=== PATIENT | male | born 1945 | race Caucasian/White ===

== ENCOUNTER 2019-02-10 10:14 | Inpatient (IN) | payer BC, MEDICARE ==
[2019-02-10] MEDS ORDERED: Magnesium Hydroxide 400 MG/5 ML Susp 30 ML Cup PO PRN (15:34)
[2019-02-10] MEDS ORDERED: Acetaminophen 325 MG Tab PO PRN (15:34)
[2019-02-10] MEDS ORDERED: Docusate Sodium 100 MG Cap PO PRN (15:34)
[2019-02-10] MEDS ORDERED: Albuterol/Ipratropium 3.0-0.5 MG/3 ML Neb Soln NEB PRN (15:34)
[2019-02-10] MEDS ORDERED: Albuterol/Ipratropium 3.0-0.5 MG/3 ML Neb Soln INH PRN (15:37)
[2019-02-10] MEDS: Formoterol/Mometasone 200-5 MCG 8.8 GM Inhaler IH SCH (17:59)
--- NOTE | 2019-02-10 19:33 | HP ---
CHIEF COMPLAINT: The patient is being admitted to swing bed for continued physical therapy and occupational therapy. HISTORY OF PRESENTING ILLNESS: Mr. Issa Barrios is a 73-year-old male with a medical history significant for chronic obstructive pulmonary disease, history of chronic tobacco use in the past, was initially admitted to [facility] on January 24, 2019 with increasing shortness of breath and was treated for acute COPD exacerbation and acute respiratory failure requiring BiPAP at times and got discharged today. As he has generalized debility with continued requirement of physical therapy, he is being admitted to [facility] bed at this time. At this time, the patient denies any complaints of chest pain, continues to have mild shortness of breath, 3 to 4/10 in intensity, aggravated on exertion, relieved with rest. Not associated with nausea or vomiting. Denies any abdominal pain. The patient has longstanding history of COPD and also has history of sleep apnea. He usually uses CPAP at night. The patient had chronic history of tobacco use. He has been trying to quit smoking, but last time he smoked was few days prior to getting admitted to [facility]. The patient denied any history of chest pains on exertion, but has dyspnea on exertion. No history of orthopnea or paroxysmal nocturnal dyspnea. The patient denied any history of hematemesis, hematochezia, or melenic stools. Normal bowel and bladder habits otherwise. REVIEW OF SYSTEMS: A complete review of systems including skin; ear, nose, and throat; cardiovascular system; respiratory system; gastrointestinal system; genitourinary system; hematology; oncology; neurology; allergy/immunology; constitutional were all evaluated and were negative except for the above-said notes. PAST MEDICAL HISTORY: Significant for chronic tobacco use, chronic obstructive pulmonary disease, sleep apnea requiring CPAP at night. PAST SURGICAL HISTORY: None as per the patient. Had left heart catheterization in 11/2018. FAMILY HISTORY: Significant for diabetes and cancer in his father. SOCIAL HISTORY: The patient had history of smoking tobacco in the past and trying to quit smoking now. No history of alcohol intake. No history of drug use. ALLERGIES: No known drug allergies. HOME MEDICATIONS: Include Spiriva 18 mcg inhalation daily, tamsulosin 1 tablet at bedtime, prednisone 20 mg daily, simvastatin 10 mg daily, mirtazapine 15 mg at bedtime, DuoNeb 3 mL inhalation 4 times a day as needed, Lasix 40 mg daily, Dulera 2-puff inhalation twice a day. PHYSICAL EXAMINATION: Vital Signs: Temperature of 98.4, pulse of 92, blood pressure of 83/58, respiratory rate of 20, saturating at 91% on 1 L of oxygen. General Appearance: The patient is well oriented to time, place, and person. Follows commands spontaneously. Cardiovascular System: S1, S2 heard with normal intensity. No gallops. Respiratory System: Clear to auscultation bilaterally. No wheeze. No crepitations. Abdomen: Soft. Bowel sounds positive. Nontender. No rigidity. Extremities: No edema in bilateral lower extremities. LABORATORY DATA: Labs from [facility] shows sodium 142, potassium 4.2, chloride 101, bicarb 37.6, creatinine 0.8, glucose 80. Arterial blood gas analysis shows pH of 7.33, pCO2 of 69, PO2 of 75, bicarb 36.4. ASSESSMENT: 1. Chronic obstructive pulmonary disease. 2. 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 3. Obstructive sleep apnea requiring CPAP at night. 4. History of chronic tobacco use. 5. Generalized debility requiring physical therapy and occupational therapy. PLAN: 1. Chronic obstructive pulmonary disease. Continue with current inhalation treatment and nebulizer treatment. The patient will be encouraged to use incentive spirometer and flutter valve for better pulmonary toileting. The patient had a CT scan done at [facility], which showed evidence of severe emphysematous changes with bullous changes and honeycombing suggesting end-stage lung disease. The patient was also evaluated by pulmonary team over there and advised to continue with inhalation treatments. 2. Low blood pressure. The patient noted to have low blood pressure. He has been on Lasix. We will further dose adjust the medication to optimize the blood pressure. Try to avoid any hypotensive episodes. The patient remains asymptomatic. 3. Obstructive sleep apnea. The patient usually uses CPAP at night. Continue with CPAP while in the hospital. 4. DVT prophylaxis. We will him on heparin for DVT prophylaxis. 5. Chronic hypoxic respiratory failure. Continue supplemental oxygen to maintain a saturation of 90%. 6. Code status. The patient wants to be full code. Discussed with the patient regarding the treatment goals and options. Reviewed the labs and medications. Reviewed the old charts and charts obtained from [facility]. [facility] /[id number]
[2019-02-10] MEDS: Mirtazapine 15 MG Tab PO SCH (20:54)
[2019-02-10] MEDS: Tamsulosin 0.4 MG Cap.ER PO SCH (20:54)
[2019-02-11 06:38] LABS: ANION GAP 9.8; CHLORIDE,CL 95 mmol/L (101-111); SODIUM,NA 139 mmol/L (135-145)
[2019-02-11] MEDS: Formoterol/Mometasone 200-5 MCG 8.8 GM Inhaler IH SCH ×2 (08:41→17:27)
[2019-02-11] MEDS: Simvastatin 10 MG Tab PO SCH (08:42)
[2019-02-11] MEDS: Furosemide 20 MG Tab PO SCH (08:43)
[2019-02-11] MEDS: predniSONE 20 MG Tab PO SCH (08:43)
[2019-02-11] MEDS: Tiotropium Inhaler 18 MCG Inhalation Powder Cap Kit of 5 INH SCH (08:44)
[2019-02-11] MEDS: Enoxaparin 40 MG/0.4 ML Syringe SUBCUT SCH (17:23)
[2019-02-11] MEDS: Tamsulosin 0.4 MG Cap.ER PO SCH (20:33)
[2019-02-11] MEDS: Mirtazapine 15 MG Tab PO SCH (20:33)
[2019-02-12] MEDS: Tiotropium Inhaler 18 MCG Inhalation Powder Cap Kit of 5 INH SCH (09:09)
[2019-02-12] MEDS: Formoterol/Mometasone 200-5 MCG 8.8 GM Inhaler IH SCH ×2 (09:09→17:44)
[2019-02-12] MEDS: Enoxaparin 40 MG/0.4 ML Syringe SUBCUT SCH (09:09)
[2019-02-12] MEDS: Simvastatin 10 MG Tab PO SCH (09:10)
[2019-02-12] MEDS: Furosemide 20 MG Tab PO SCH (09:10)
[2019-02-12] MEDS: predniSONE 20 MG Tab PO SCH (09:10)
[2019-02-12] MEDS: Tamsulosin 0.4 MG Cap.ER PO SCH (21:00)
[2019-02-12] MEDS: Mirtazapine 15 MG Tab PO SCH (21:00)
[2019-02-13] MEDS: Simvastatin 10 MG Tab PO SCH (08:42)
[2019-02-13] MEDS: Enoxaparin 40 MG/0.4 ML Syringe SUBCUT SCH (08:42)
[2019-02-13] MEDS: predniSONE 20 MG Tab PO SCH (08:42)
[2019-02-13] MEDS: Furosemide 20 MG Tab PO SCH (08:42)
[2019-02-13] MEDS: Formoterol/Mometasone 200-5 MCG 8.8 GM Inhaler IH SCH ×2 (08:43→17:43)
[2019-02-13] MEDS: Tiotropium Inhaler 18 MCG Inhalation Powder Cap Kit of 5 INH SCH (08:44)
[2019-02-13] MEDS: Tamsulosin 0.4 MG Cap.ER PO SCH (20:39)
[2019-02-13] MEDS: Mirtazapine 15 MG Tab PO SCH (20:40)
[2019-02-14] MEDS: Formoterol/Mometasone 200-5 MCG 8.8 GM Inhaler IH SCH ×2 (08:09→17:58)
[2019-02-14] MEDS: Furosemide 20 MG Tab PO SCH (09:20)
[2019-02-14] MEDS: predniSONE 20 MG Tab PO SCH (09:20)
[2019-02-14] MEDS: Simvastatin 10 MG Tab PO SCH (09:20)
[2019-02-14] MEDS: Enoxaparin 40 MG/0.4 ML Syringe SUBCUT SCH (09:20)
[2019-02-14] MEDS: Tiotropium Inhaler 18 MCG Inhalation Powder Cap Kit of 5 INH SCH (09:21)
[2019-02-14] MEDS: Mirtazapine 15 MG Tab PO SCH (20:55)
[2019-02-14] MEDS: Tamsulosin 0.4 MG Cap.ER PO SCH (20:55)
[2019-02-15] MEDS: Furosemide 20 MG Tab PO SCH (08:54)
[2019-02-15] MEDS: predniSONE 20 MG Tab PO SCH (08:54)
[2019-02-15] MEDS: Simvastatin 10 MG Tab PO SCH (08:55)
[2019-02-15] MEDS: Enoxaparin 40 MG/0.4 ML Syringe SUBCUT SCH (08:55)
[2019-02-15] MEDS: Formoterol/Mometasone 200-5 MCG 8.8 GM Inhaler IH SCH ×2 (08:56→18:20)
[2019-02-15] MEDS: Tiotropium Inhaler 18 MCG Inhalation Powder Cap Kit of 5 INH SCH (08:56)
[2019-02-15] MEDS: Mirtazapine 15 MG Tab PO SCH (20:32)
[2019-02-15] MEDS: Tamsulosin 0.4 MG Cap.ER PO SCH (20:32)
[2019-02-16] MEDS: Formoterol/Mometasone 200-5 MCG 8.8 GM Inhaler IH SCH ×2 (08:18→19:16)
[2019-02-16] MEDS: Furosemide 20 MG Tab PO SCH (08:19)
[2019-02-16] MEDS: predniSONE 20 MG Tab PO SCH (08:19)
[2019-02-16] MEDS: Enoxaparin 40 MG/0.4 ML Syringe SUBCUT SCH (08:19)
[2019-02-16] MEDS: Simvastatin 10 MG Tab PO SCH (08:19)
[2019-02-16] MEDS: Tiotropium Inhaler 18 MCG Inhalation Powder Cap Kit of 5 INH SCH (09:38)
[2019-02-16] MEDS: Tamsulosin 0.4 MG Cap.ER PO SCH (21:33)
[2019-02-16] MEDS: Mirtazapine 15 MG Tab PO SCH (21:33)
[2019-02-17] MEDS: Formoterol/Mometasone 200-5 MCG 8.8 GM Inhaler IH SCH ×2 (08:58→19:01)
[2019-02-17] MEDS: Simvastatin 10 MG Tab PO SCH (09:00)
[2019-02-17] MEDS: Enoxaparin 40 MG/0.4 ML Syringe SUBCUT SCH (09:00)
[2019-02-17] MEDS: predniSONE 20 MG Tab PO SCH (09:00)
[2019-02-17] MEDS: Furosemide 20 MG Tab PO SCH (09:00)
[2019-02-17] MEDS: Tiotropium Inhaler 18 MCG Inhalation Powder Cap Kit of 5 INH SCH (09:01)
[2019-02-17] MEDS: Tamsulosin 0.4 MG Cap.ER PO SCH (21:32)
[2019-02-17] MEDS: Mirtazapine 15 MG Tab PO SCH (21:32)
[2019-02-18] MEDS: Formoterol/Mometasone 200-5 MCG 8.8 GM Inhaler IH SCH ×2 (09:05→19:09)
[2019-02-18] MEDS: Tiotropium Inhaler 18 MCG Inhalation Powder Cap Kit of 5 INH SCH (09:06)
[2019-02-18] MEDS: Simvastatin 10 MG Tab PO SCH (09:06)
[2019-02-18] MEDS: predniSONE 20 MG Tab PO SCH (09:06)
[2019-02-18] MEDS: Enoxaparin 40 MG/0.4 ML Syringe SUBCUT SCH (09:07)
[2019-02-18] MEDS: Furosemide 20 MG Tab PO SCH (09:07)
--- NOTE | 2019-02-18 10:01 | PN ---
DATE: 02/17/2019 SUBJECTIVE: The patient is a 73-year-old male with past medical history of COPD, chronic tobacco use, who was admitted to Swing Bed for continued physical therapy and outpatient therapy. He is currently using BiPAP at night and this has been helping him. The patient currently denies any significant ongoing complaint except that he is still weak, but no chest pain, fever, chills, orthopnea, PND, abdominal pain, or any other complaints. OBJECTIVE: Vital Signs: Blood pressure is 96/55, pulse of 75, respirations 16, temperature of 98.9, saturation is 97% on 2 L per nasal cannula. Heart: Regular rate and rhythm. Normal S1 and S2. No gallops. No rubs. Lungs: Diminished breath sounds on both bases, but no crackles, no wheezing. Abdomen: Soft and nontender. Bowel sounds positive. Extremities: Negative for any calf tenderness. No significant pedal edema. MEDICATIONS: Reviewed. PLAN: We will continue with present management and continue with PT and OT. [facility] /[id number]
[2019-02-18] MEDS: Tamsulosin 0.4 MG Cap.ER PO SCH (21:26)
[2019-02-18] MEDS: Mirtazapine 15 MG Tab PO SCH (21:27)
[2019-02-19] MEDS: Formoterol/Mometasone 200-5 MCG 8.8 GM Inhaler IH SCH ×2 (07:54→17:57)
[2019-02-19] MEDS: Furosemide 20 MG Tab PO SCH (09:29)
[2019-02-19] MEDS: predniSONE 20 MG Tab PO SCH (09:29)
[2019-02-19] MEDS: Enoxaparin 40 MG/0.4 ML Syringe SUBCUT SCH (09:29)
[2019-02-19] MEDS: Simvastatin 10 MG Tab PO SCH (09:29)
[2019-02-19] MEDS: Tiotropium Inhaler 18 MCG Inhalation Powder Cap Kit of 5 INH SCH (09:30)
[2019-02-19] MEDS: Mirtazapine 15 MG Tab PO SCH (21:46)
[2019-02-19] MEDS: Tamsulosin 0.4 MG Cap.ER PO SCH (21:46)
[2019-02-20] MEDS: predniSONE 20 MG Tab PO SCH (08:53)
[2019-02-20] MEDS: Simvastatin 10 MG Tab PO SCH (08:53)
[2019-02-20] MEDS: Furosemide 20 MG Tab PO SCH (08:53)
[2019-02-20] MEDS: Tiotropium Inhaler 18 MCG Inhalation Powder Cap Kit of 5 INH SCH (08:55)
[2019-02-20] MEDS: Enoxaparin 40 MG/0.4 ML Syringe SUBCUT SCH (08:55)
[2019-02-20] MEDS: Formoterol/Mometasone 200-5 MCG 8.8 GM Inhaler IH SCH ×2 (08:55→18:27)
[2019-02-20] MEDS: Tamsulosin 0.4 MG Cap.ER PO SCH (21:27)
[2019-02-20] MEDS: Mirtazapine 15 MG Tab PO SCH (21:27)
[2019-02-21] MEDS: Formoterol/Mometasone 200-5 MCG 8.8 GM Inhaler IH SCH ×2 (06:24→18:30)
[2019-02-21] MEDS: predniSONE 20 MG Tab PO SCH (08:46)
[2019-02-21] MEDS: Furosemide 20 MG Tab PO SCH (08:46)
[2019-02-21] MEDS: Simvastatin 10 MG Tab PO SCH (08:47)
[2019-02-21] MEDS: Enoxaparin 40 MG/0.4 ML Syringe SUBCUT SCH (08:47)
[2019-02-21] MEDS: Tiotropium Inhaler 18 MCG Inhalation Powder Cap Kit of 5 INH SCH (08:53)
[2019-02-21] MEDS: Tamsulosin 0.4 MG Cap.ER PO SCH (21:09)
[2019-02-21] MEDS: Mirtazapine 15 MG Tab PO SCH (21:09)
[2019-02-22] MEDS: Formoterol/Mometasone 200-5 MCG 8.8 GM Inhaler IH SCH ×2 (08:49→21:07)
[2019-02-22] MEDS: Furosemide 20 MG Tab PO SCH (08:49)
[2019-02-22] MEDS: predniSONE 20 MG Tab PO SCH (08:50)
[2019-02-22] MEDS: Enoxaparin 40 MG/0.4 ML Syringe SUBCUT SCH (08:50)
[2019-02-22] MEDS: Tiotropium Inhaler 18 MCG Inhalation Powder Cap Kit of 5 INH SCH (08:50)
[2019-02-22] MEDS: Simvastatin 10 MG Tab PO SCH (08:50)
[2019-02-22] MEDS: Mirtazapine 15 MG Tab PO SCH (21:07)
[2019-02-22] MEDS: Tamsulosin 0.4 MG Cap.ER PO SCH (21:07)
[2019-02-23] MEDS: Simvastatin 10 MG Tab PO SCH (09:20)
[2019-02-23] MEDS: Furosemide 20 MG Tab PO SCH (09:21)
[2019-02-23] MEDS: Formoterol/Mometasone 200-5 MCG 8.8 GM Inhaler IH SCH ×2 (09:21→17:37)
[2019-02-23] MEDS: predniSONE 20 MG Tab PO SCH (09:21)
[2019-02-23] MEDS: Tiotropium Inhaler 18 MCG Inhalation Powder Cap Kit of 5 INH SCH (09:21)
[2019-02-23] MEDS: Enoxaparin 40 MG/0.4 ML Syringe SUBCUT SCH (09:21)
[2019-02-23] MEDS: Mirtazapine 15 MG Tab PO SCH (21:12)
[2019-02-23] MEDS: Tamsulosin 0.4 MG Cap.ER PO SCH (21:12)
[2019-02-24] MEDS: Formoterol/Mometasone 200-5 MCG 8.8 GM Inhaler IH SCH ×2 (08:03→17:41)
[2019-02-24] MEDS: Furosemide 20 MG Tab PO SCH (08:04)
[2019-02-24] MEDS: Tiotropium Inhaler 18 MCG Inhalation Powder Cap Kit of 5 INH SCH (08:05)
[2019-02-24] MEDS: Simvastatin 10 MG Tab PO SCH (08:05)
[2019-02-24] MEDS: predniSONE 20 MG Tab PO SCH (08:05)
[2019-02-24] MEDS: Enoxaparin 40 MG/0.4 ML Syringe SUBCUT SCH (08:05)
--- NOTE | 2019-02-24 13:31 | PCM.PN ---
- General Info Date of Service: 02/24/19 Admission Dx/Problem (Free Text): He was admitted to swing bed for strengthening and continuing PT/OT Subjective Update: He was seen in room, doing well, still weak, No nausea or Vomiting, appetite is good, No fever or Chill. Functional Status: Reports: Pain Controlled, Tolerating Diet, Ambulating, Urinating - Review of Systems General: Reports: Weakness, Fatigue, Appetite (good). Denies: Fever, Chills HEENT: Denies: Headaches, Sinus Congestion, Sore Throat, Visual Changes Pulmonary: Reports: Shortness of Breath (on supplemental oxygen). Denies: Cough , Sputum, Wheezing Cardiovascular: Reports: Dyspnea on Exertion. Denies: Chest Pain, Lightheadedness Gastrointestinal: Denies: Abdominal Pain, Diarrhea, Difficulty Swallowing, Melena, Nausea, Vomiting Genitourinary: Denies: Dysuria, Burning, Urgency Musculoskeletal: Denies: Neck Pain, Foot Pain, Joint Swelling Skin: Denies: Cyanosis, Bruising, Pruritis, Rash Neurological: Denies: Confusion, Numbness, Paresthesia, Tremors Psychiatric: Denies: Confusion, Anxiety - Patient Data Vitals - Most Recent: Last Vital Signs Temp 37.1 C 02/24/19 07:51 Pulse 94 02/24/19 07:51 Resp 20 02/24/19 07:51 BP 100/57 L 02/24/19 07:51 Pulse Ox 96 02/24/19 07:51 Weight - Most Recent: 58.332 kg I&O - Last 24 Hours: Intake & Output 02/23/19 02/24/19 02/24/19 22:59 06:59 14:59 Intake Total 100 200 Balance 100 200 Med Orders - Current: Current Medications Acetaminophen (Tylenol) 650 mg PO Q4H PRN PRN Reason: Pain (Mild 1-3)/fever Albuterol/Ipratropium (Duoneb 3.0-0.5 Mg/3 Ml) 3 ml NEB Q4H PRN PRN Reason: shortness of breath/wheezing Last Admin: 02/23/19 12:32 Dose: 3 ml Docusate Sodium (Colace) 100 mg PO BID PRN PRN Reason: Constipation Last Admin: 02/12/19 09:10 Dose: 100 mg Enoxaparin Sodium (Lovenox) 40 mg SUBCUT DAILY [facility] Last Admin: 02/24/19 08:05 Dose: 40 mg Furosemide (Lasix) 20 mg PO DAILY [facility] Last Admin: 02/24/19 08:04 Dose: 20 mg Magnesium Hydroxide (Milk Of Magnesia) 30 ml PO Q12H PRN PRN Reason: Constipation Mirtazapine (Remeron) 15 mg PO BEDTIME [facility] Last Admin: 02/23/19 21:12 Dose: 15 mg Mometasone Furoate/Formoterol Fumar (Dulera 200-5 Mcg) 2 puff IH BIDRT [facility] Last Admin: 02/24/19 08:03 Dose: 2 puff Prednisone (Prednisone) 20 mg PO DAILY [facility] Last Admin: 02/24/19 08:05 Dose: 20 mg Simvastatin (Zocor) 10 mg PO DAILY [facility] Last Admin: 02/24/19 08:05 Dose: 10 mg Tamsulosin HCl (Flomax) 0.4 mg PO BEDTIME [facility] Last Admin: 02/23/19 21:12 Dose: 0.4 mg Tiotropium [place] (Spiriva Handihaler) 18 mcg INH DAILY [facility] Last Admin: 02/24/19 08:05 Dose: 18 mcg Discontinued Medications Influenza Virus Vaccine (Fluad [id number] Syringe) 45 mcg IM .ONCE ONE Stop: 02/11/19 15:01 Last Admin: 02/11/19 17:25 Dose: 45 mcg - Exam Quality Assessment: Supplemental Oxygen, DVT Prophylaxis. No: Urine Catheter General: Alert, Oriented, Cooperative, No Acute Distress HEENT: Pupils Equal, Pupils Reactive, EOMI, Mucous Membr. Moist/[place]: No: No JVD, No Thyromegaly, Lymphadenopathy Lungs: Clear to Auscultation, Normal Respiratory Effort, Crackles. No: Wheezing Cardiovascular: Regular Rate, Regular Rhythm GI/Abdominal Exam: Normal Bowel Sounds, Soft, Non-Tender, No Distention. No: Rebound, Tender (Male) Exam: Deferred Back Exam: Normal Inspection Extremities: Normal Inspection, No Pedal Edema Skin: Warm, Dry, Intact Neurological: No New Focal Deficit, Normal Speech Psy/Mental Status: Alert, Normal Affect, Normal Mood Sepsis Event Note - Evaluation Sepsis Screening Result: No Definite Risk - Focused Exam Vital Signs: Vital Signs Temp Pulse Resp BP Pulse Ox 02/24/19 07:51 37.1 C 94 20 100/57 L 96 Date Exam was Performed: 02/24/19 Time Exam was Performed: 13:38 - Problem List & Annotations (1) COPD (chronic obstructive pulmonary disease) SNOMED Code(s): 28274180 Code(s): J44.9 - CHRONIC OBSTRUCTIVE PULMONARY DISEASE, UNSPECIFIED Status : Acute Current Visit: Yes (2) Weakness SNOMED Code(s): 99307980 Code(s): R53.1 - WEAKNESS Status: Acute Current Visit: Yes (3) Hypertension SNOMED Code(s): 24084792 Code(s): I10 - ESSENTIAL (PRIMARY) HYPERTENSION Status: Acute Current Visit: Yes - Problem List Review Problem List Initiated/Reviewed/Updated: Yes - Plan Plan:: This is a 73 Y/O Male with past medical history of COPD, history of chronic Tobaco use, initially admitted to [facility] for Increasing shortness of breath, was treated for COPD exacerbation and acute respiratory failure requiring the use of BiPAP. He is now admitted to [facility] Bed for continuing Physical therapy and Occupational therapy. He is now improving but unable to wean off oxygen. He seems likely will be needing oxygen 24 hrs. Impression and Plan: 1. COPD: Continue with current Inhalation and Nebulizer treatment -Encouraged frequent use of Incentive Spirometry and Flutter Valve for better pulmonary toileting 2. Generalized weakness: He is now doing PT/OT and Improving , will need to continue PT/OT 3. Dyslipidemia: will continue Simvastatin 4. Hypertension: His BP is acceptable and was Hypotensive at [facility], now he is not on any medication 5. DVT prophylaxis: He is on Enoxaparin
[2019-02-24] MEDS: Mirtazapine 15 MG Tab PO SCH (21:25)
[2019-02-24] MEDS: Tamsulosin 0.4 MG Cap.ER PO SCH (21:25)
[2019-02-25] MEDS: Formoterol/Mometasone 200-5 MCG 8.8 GM Inhaler IH SCH ×2 (08:11→18:32)
[2019-02-25] MEDS: Enoxaparin 40 MG/0.4 ML Syringe SUBCUT SCH (08:12)
[2019-02-25] MEDS: Furosemide 20 MG Tab PO SCH (08:12)
[2019-02-25] MEDS: Tiotropium Inhaler 18 MCG Inhalation Powder Cap Kit of 5 INH SCH (08:13)
[2019-02-25] MEDS: predniSONE 20 MG Tab PO SCH (08:13)
[2019-02-25] MEDS: Simvastatin 10 MG Tab PO SCH (08:13)
[2019-02-25] MEDS: Mirtazapine 15 MG Tab PO SCH (21:03)
[2019-02-25] MEDS: Tamsulosin 0.4 MG Cap.ER PO SCH (21:03)
[2019-02-26] MEDS: Formoterol/Mometasone 200-5 MCG 8.8 GM Inhaler IH SCH ×2 (08:57→18:00)
[2019-02-26] MEDS: Tiotropium Inhaler 18 MCG Inhalation Powder Cap Kit of 5 INH SCH (08:57)
[2019-02-26] MEDS: Furosemide 20 MG Tab PO SCH (08:58)
[2019-02-26] MEDS: predniSONE 20 MG Tab PO SCH (08:58)
[2019-02-26] MEDS: Simvastatin 10 MG Tab PO SCH (08:58)
[2019-02-26] MEDS: Enoxaparin 40 MG/0.4 ML Syringe SUBCUT SCH (08:59)
[2019-02-26] MEDS: Mirtazapine 15 MG Tab PO SCH (20:48)
[2019-02-26] MEDS: Tamsulosin 0.4 MG Cap.ER PO SCH (20:49)
[2019-02-27] MEDS: Formoterol/Mometasone 200-5 MCG 8.8 GM Inhaler IH SCH ×2 (08:23→17:09)
[2019-02-27] MEDS: Furosemide 20 MG Tab PO SCH (08:24)
[2019-02-27] MEDS: Enoxaparin 40 MG/0.4 ML Syringe SUBCUT SCH (08:24)
[2019-02-27] MEDS: Simvastatin 10 MG Tab PO SCH (08:25)
[2019-02-27] MEDS: predniSONE 20 MG Tab PO SCH (08:25)
[2019-02-27] MEDS: Tiotropium Inhaler 18 MCG Inhalation Powder Cap Kit of 5 INH SCH (08:25)
[2019-02-27] MEDS: Tamsulosin 0.4 MG Cap.ER PO SCH (21:27)
[2019-02-27] MEDS: Mirtazapine 15 MG Tab PO SCH (21:28)
[2019-02-28] MEDS: Formoterol/Mometasone 200-5 MCG 8.8 GM Inhaler IH SCH ×2 (09:11→18:13)
[2019-02-28] MEDS: Simvastatin 10 MG Tab PO SCH (09:11)
[2019-02-28] MEDS: Furosemide 20 MG Tab PO SCH (09:11)
[2019-02-28] MEDS: Enoxaparin 40 MG/0.4 ML Syringe SUBCUT SCH (09:11)
[2019-02-28] MEDS: predniSONE 20 MG Tab PO SCH (09:11)
[2019-02-28] MEDS: Tiotropium Inhaler 18 MCG Inhalation Powder Cap Kit of 5 INH SCH (09:12)
[2019-02-28] MEDS: Tamsulosin 0.4 MG Cap.ER PO SCH (20:52)
[2019-02-28] MEDS: Mirtazapine 15 MG Tab PO SCH (20:52)
[2019-03-01] MEDS: Formoterol/Mometasone 200-5 MCG 8.8 GM Inhaler IH SCH (07:51)
[2019-03-01 08:36] VITALS: BP 110/65; PULSE 90
[2019-03-01] MEDS: Furosemide 20 MG Tab PO SCH (09:08)
[2019-03-01] MEDS: predniSONE 20 MG Tab PO SCH (09:08)
[2019-03-01] MEDS: Enoxaparin 40 MG/0.4 ML Syringe SUBCUT SCH (09:08)
[2019-03-01] MEDS: Simvastatin 10 MG Tab PO SCH (09:08)
[2019-03-01] MEDS: Tiotropium Inhaler 18 MCG Inhalation Powder Cap Kit of 5 INH SCH (09:09)
--- NOTE | 2019-03-01 12:41 | PCM.DCSUM1 ---
Discharge Summary - Hospital Course Free Text/Narrative:: This is a 73 Y/O Male with past medical history of COPD, history of chronic Tobaco use, initially admitted to [facility] for Increasing shortness of breath, was treated for COPD exacerbation and acute respiratory failure requiring the use of BiPAP. He is now admitted to Swing Bed for continuing Physical therapy and Occupational therapy. He is now improving but unable to wean off oxygen. He will need supplemental oxygen 24 hrs at home. He had walking desaturation study done and 1st 02 sat on Room air: 75%, second lowest Desaturation: 85% with 4 L/min, Recovery 89% on 3L/min, pt needs 6 L/ min with activity. He will need out patient PT for strengthening and Decreased Mobility - Discharge Data Discharge Date: 03/01/19 Discharge Disposition: Home, Self-Care 01 Condition: Good - Referral to Home Health Primary Care Physician: PCP Unobtainable - Discharge Diagnosis/Problem(s) (1) COPD (chronic obstructive pulmonary disease) SNOMED Code(s): 41711277 ICD Code: J44.9 - CHRONIC OBSTRUCTIVE PULMONARY DISEASE, UNSPECIFIED Status : Acute Current Visit: Yes (2) Weakness SNOMED Code(s): 67052722 ICD Code: R53.1 - WEAKNESS Status: Acute Current Visit: Yes (3) Hypertension SNOMED Code(s): 37391317 ICD Code: I10 - ESSENTIAL (PRIMARY) HYPERTENSION Status: Acute Current Visit: Yes - Patient Summary/Data Consults: Consultations 02/10/19 15:34 OT Evaluation and Treatment [CONS] Routine PT Evaluation and Treatment [CONS] Routine - Patient Instructions Diet: Usual Diet as Tolerated Activity: As Tolerated Showering/Bathing: May Shower Notify Provider of: Fever, Nausea and/or Vomiting Other/Special Instructions: pt need to follow with PMD in a week after Discharge. He will go home on oxygen 3 L/min at rest and 6 L/min with activilty. He is encouraged to use incentive spirometry and flutter valve for better pulmonary tioleting. - Discharge Plan Prescriptions/Med Rec: predniSONE [Prednisone] 10 mg PO . DIRECTED #8 tab.ds.pk Home Medications: Home Meds Furosemide 40 mg PO DAILY 10/09/13 [History] Tamsulosin HCl 1 tab PO BEDTIME 10/09/13 [History] Mirtazapine [Remeron] 15 mg PO BEDTIME 02/10/19 [History] Mometasone/Formoterol [Dulera 200 Mcg/5 Mcg Inhaler] 2 puff INH BID 02/10/19 [ History] Simvastatin 10 mg PO DAILY 02/10/19 [History] Tiotropium [Spiriva HandiHaler] 18 mcg INH DAILY 02/10/19 [History] predniSONE [Prednisone] 10 mg PO . DIRECTED #8 tab.ds.pk 03/01/19 [Rx] Patient Handouts: Chronic Obstructive Pulmonary Disease, [id number] - Discharge Summary/Plan Comment DC Time >30 min.: Yes Discharge Summary/Plan Comment: This is a 73 Y/O Male with past medical history of COPD, history of chronic Tobaco use, initially admitted to [facility] for Increasing shortness of breath, was treated for COPD exacerbation and acute respiratory failure requiring the use of BiPAP. He is now admitted to [facility] for continuing Physical therapy and Occupational therapy. He is now improving but unable to wean off oxygen and will be going home on oxygen 24 hrs. Impression and Plan: 1. COPD: Continue with current Inhalation and Nebulizer treatment -Encouraged frequent use of Incentive Spirometry and Flutter Valve for better pulmonary toileting -He had walking desaturation study and will need 3 l/min at rest and 6 l/min with activity 2. Generalized weakness: He is now doing PT/OT and Improving , will need to continue PT/OT at home 3. Dyslipidemia: will continue Simvastatin 4. Hypertension: His BP is acceptable and was Hypotensive at [facility], now he is not on any medication - General Info Date of Service: 03/01/19 Admission Dx/Problem (Free Text: He was admitted to [facility] for strengthening and continuing PT/OT Subjective Update: He was seen in room, doing well, still weak, No nausea or Vomiting, appetite is good, No fever or Chill and will oxygen 24 hrs to go home. Functional Status: Reports: Pain Controlled, Tolerating Diet, Ambulating (with assitance), Urinating - Review of Systems General: Reports: Weakness, Appetite (good). Denies: Fever, Chills HEENT: Denies: Dysphasia, Headaches, Sinus Congestion, Sore Throat, Visual Changes Pulmonary: Reports: Shortness of Breath. Denies: Cough, Wheezing Cardiovascular: Denies: Chest Pain, Edema, Lightheadedness Gastrointestinal: Denies: Abdominal Pain, Diarrhea, Nausea, Vomiting Genitourinary: Denies: Dysuria, Burning, Urgency, Flank Pain Musculoskeletal: Denies: Neck Pain, Shoulder Pain, Hand Pain, Leg Pain, Foot Pain Skin: Denies: Cyanosis, Jaundice, Bruising, Pruritis, Rash Neurological: Denies: Confusion, Numbness, Tingling, Tremors Psychiatric: Reports: No Symptoms - Patient Data Vitals - Most Recent: Last Vital Signs Temp 36.2 C 03/01/19 08:33 Pulse 90 03/01/19 08:33 Resp 20 03/01/19 08:33 BP 110/65 03/01/19 08:33 Pulse Ox 98 03/01/19 08:33 Weight - Most Recent: 61.054 kg I&O - Last 24 hours: Intake & Output 02/28/19 03/01/19 03/01/19 22:59 06:59 14:59 Intake Total 240 400 Balance 240 400 Med Orders - Current: Current Medications Acetaminophen (Tylenol) 650 mg PO Q4H PRN PRN Reason: Pain (Mild 1-3)/fever Albuterol/Ipratropium (Duoneb 3.0-0.5 Mg/3 Ml) 3 ml NEB Q4H PRN PRN Reason: shortness of breath/wheezing Last Admin: 02/23/19 12:32 Dose: 3 ml Docusate Sodium (Colace) 100 mg PO BID PRN PRN Reason: Constipation Last Admin: 02/12/19 09:10 Dose: 100 mg Enoxaparin Sodium (Lovenox) 40 mg SUBCUT DAILY [facility] Last Admin: 03/01/19 09:08 Dose: 40 mg Furosemide (Lasix) 20 mg PO DAILY [facility] Last Admin: 03/01/19 09:08 Dose: 20 mg Magnesium Hydroxide (Milk Of Magnesia) 30 ml PO Q12H PRN PRN Reason: Constipation Mirtazapine (Remeron) 15 mg PO BEDTIME [facility] Last Admin: 02/28/19 20:52 Dose: 15 mg Mometasone Furoate/Formoterol Fumar (Dulera 200-5 Mcg) 2 puff IH BIDRT [facility] Last Admin: 03/01/19 07:51 Dose: 2 puff Prednisone (Prednisone) 20 mg PO DAILY [facility] Last Admin: 03/01/19 09:08 Dose: 20 mg Simvastatin (Zocor) 10 mg PO DAILY [facility] Last Admin: 03/01/19 09:08 Dose: 10 mg Tamsulosin HCl (Flomax) 0.4 mg PO BEDTIME [facility] Last Admin: 02/28/19 20:52 Dose: 0.4 mg Tiotropium [place] (Spiriva Handihaler) 18 mcg INH DAILY [facility] Last Admin: 03/01/19 09:09 Dose: 18 mcg Discontinued Medications Influenza Virus Vaccine (Fluad Syringe) 45 mcg IM .ONCE ONE Stop: 02/11/19 15:01 Last Admin: 02/11/19 17:25 Dose: 45 mcg - Exam Quality Assessment: Reports: Supplemental Oxygen, DVT Prophylaxis. Denies: Urine Catheter General: Reports: Alert, Oriented, Cooperative HEENT: Reports: Pupils Equal, EOMI, Mucous Membr. Moist/[place] Neck: Reports: No JVD, No Thyromegaly. Denies: Lymphadenopathy Lungs: Reports: Clear to Auscultation, Normal Respiratory Effort. Denies: Crackles, Wheezing Cardiovascular: Reports: Regular Rate, Regular Rhythm, Murmurs GI/Abdominal Exam: Normal Bowel Sounds, Soft. No: Guarding, Rigid, Rebound, Tender (Male) Exam: Deferred Rectal (Males) Exam: Deferred Back Exam: Reports: Normal Inspection Extremities: Normal Inspection, No Pedal Edema Skin: Reports: Warm, Dry, Intact Neurological: Reports: No New Focal Deficit Psy/Mental Status: Reports: Alert, Normal Affect, Normal Mood
== END 2019-03-01 17:05 | disposition home or self-care (01) | DRG 861 ==
LOC: UNDOADMIN 12:34 → DL.MS 12:34
PROVIDERS: ADMIT Internal Medicine; ATTEND Internal Medicine Nephrology
DX: R53.81 Other malaise (principal); J44.9 Chronic obstructive pulmonary disease, unspecified; J96.11 Chronic respiratory failure with hypoxia; J96.12 Chronic respiratory failure with hypercapnia; G47.33 Obstructive sleep apnea (adult) (pediatric); I10 Essential (primary) hypertension; Z87.891 Personal history of nicotine dependence; Z23 Encounter for immunization; Z79.52 Long term (current) use of systemic steroids; Z79.51 Long term (current) use of inhaled steroids; Z79.899 Other long term (current) drug therapy
CPT/HCPCS: 36415; 80048; 83735; 85027; 90653; 94640; 94760; 97110-GO; 97110-GP; 97116-GP; 97162-GP; 97165-GO; 97530-GO; A9270-GY; G0008; J1650; J7620-GY

== ENCOUNTER 2020-10-20 20:13 | Emergency (ER) | payer MEDICARE, BC ==
[2020-10-20] MEDS ORDERED: Sodium Chloride 0.9% 10 ML Syringe FLUSH PRN (20:27)
[2020-10-20] MEDS ORDERED: methylPREDNISolone Sodium Succinate 125 MG/2 ML SDV IVPUSH ONE (20:28)
[2020-10-20] MEDS ORDERED: methylPREDNISolone Sodium Succinate 125 MG/2 ML SDV ONE (20:28)
[2020-10-20] MEDS ORDERED: Albuterol/Ipratropium 3.0-0.5 MG/3 ML Neb Soln NEB ONE ×2 (20:28→20:59)
--- NOTE | 2020-10-20 20:38 | EDM.PDOC ---
ED HPI GENERAL MEDICAL PROBLEM - General Chief Complaint: Cardiovascular Problem Stated Complaint: HIGH PULSE, LOW OXYGEN PER PT Time Seen by Provider: 10/20/20 20:34 Source of Information: Reports: Patient, Family History Limitations: Reports: No Limitations - History of Present Illness INITIAL COMMENTS - FREE TEXT/NARRATIVE: Patient is unfortunate 75-year-old male who presents emerged part today respiratory distress, the patient has a history of COPD and normally wears 2 L/min of oxygen at home, the patient started having increasing shortness of breath today while he was attending a wedding and the checked his oxygen level noted it was in the high 60s so she became concerned the patient started having worsening shortness of breath and was brought to the emergency department, upon arrival to the emergency department the patient had an SPO2 of 40% on room air, the patient was placed on 100% nonrebreather mask and his SPO2 ivette to 92%, he has not had any history of fever chills body aches he did receive the Covid vaccination but did not have Covid last year - Related Data Allergies Allergy/AdvReac Type Severity Reaction Status Date / Time No Known Allergies Allergy Verified 02/10/19 11:18 Home Meds: Home Meds Furosemide 40 mg PO DAILY 10/09/13 [History] Tamsulosin HCl 1 tab PO BEDTIME 10/09/13 [History] Mirtazapine [Remeron] 15 mg PO BEDTIME 02/10/19 [History] Mometasone/Formoterol [Dulera 200 Mcg-5 Mcg Inhaler] 2 puff INH BID 02/10/19 [History] Simvastatin 10 mg PO DAILY 02/10/19 [History] Tiotropium [Spiriva HandiHaler] 18 mcg INH DAILY 02/10/19 [History] predniSONE [Prednisone] 10 mg PO . DIRECTED #8 tab.ds.pk 03/01/19 [Rx] Past Medical History HEENT History: Reports: Cataract, Hard of Hearing Other HEENT History: Right ear-hearing aid, left ear- deaf Cardiovascular History: Reports: Heart Failure Other Cardiovascular History: chronic right sided heart failure Respiratory History: Reports: Bronchitis, Recurrent, COPD, Interstitial Lung Disease, Pneumonia, Recurrent Other Respiratory History: pulmonary hypertension Genitourinary History: Reports: Prostate Disorder Other Genitourinary History: BPH - Past Surgical History Cardiovascular Surgical History: Reports: None Respiratory Surgical History: Reports: None Male Surgical History: Reports: None Social & Family History - Family History Family Medical History: No Pertinent Family History - Caffeine Use Caffeine Use: Reports: Coffee - Living Situation & Occupation Living situation: Reports: , with Family Occupation: Employed ED ROS GENERAL - Review of Systems Review Of Systems: See Below Reason Not Obtained: ROS taken from spouse Constitutional: Denies: Fever, Chills Respiratory: Reports: Shortness of Breath, Wheezing, Cough, Sputum Cardiovascular: Denies: Chest Pain, Blood Pressure Problem ED EXAM, GENERAL - Physical Exam Exam: See Below General Appearance: Lethargic, Severe Distress Respiratory/Chest: Respiratory Distress (Severe), Decreased Breath Sounds (Throughout), Accessory Muscle Use, Retractions, Prolonged Expiration Cardiovascular: Tachycardia GI/Abdominal: Normal Bowel Sounds, Soft, Non-Tender, No Organomegaly, No Distention, No Abnormal Bruit, No Mass Extremities: Normal Inspection, Normal Range of Motion, Non-Tender, Normal Capillary Refill, No Pedal Edema Neurological: Slow to Respond #1 Interpretation EKG Date: 10/20/20 Time: 20:54 Rhythm: Other (ST) [place]: Normal P-Wave: Present QRS: Normal ST-T: Other (Nonspecific changes) EKG Interpretation Comments: non-Specific changes no acute ischemic changes Course - Vital Signs Text/Narrative:: The patient had a quick response to nonrebreather mask, SPO2 promptly came up into the 90s on 100% nonrebreather, the patient became alert oriented and with DuoNeb his respiratory rate has reduced and he is more comfortable, we will monitor Initial ABG shows a pH of 7.22 a PCO2 of 92.2 and a PO2 of 168, the patient will be placed on BiPAP 1 hour post BiPAP ABG pH 7.33 PCO2 67.5 PO2 of 60 Patient was accepted to [facility] Case was discussed with Dr. George at 2305 Last Recorded V/S: Last Vital Signs Temp 97.8 F 10/20/20 20:58 Pulse 115 H 10/20/20 20:58 Resp 40 H 10/20/20 20:58 BP 149/78 H 10/20/20 20:58 Pulse Ox 43 L 10/20/20 20:58 - Orders/Labs/Meds Orders: Active Orders 24 hr Category Date Time Status RT Aerosol Therapy [RC] ASDIRECTED Care 10/20/20 20:28 Active RT Aerosol Therapy [RC] ASDIRECTED Care 10/20/20 20:59 Active CULTURE BLOOD [BC] Stat Lab 10/20/20 20:27 Ordered CULTURE BLOOD [BC] Stat Lab 10/20/20 20:27 Ordered LACTIC ACID [CHEM] Routine Lab 10/20/20 23:06 Ordered UA RFX AMARA AND CULT IF INDIC [URIN] Stat Lab 10/20/20 20:27 Ordered Sodium Chloride 0.9% [Saline Flush] Med 10/20/20 20:27 Active 10 ml FLUSH ASDIRECTED PRN BiPAP [RESPCARE] Routine Oth 10/20/20 20:53 Active Blood Culture x2 Reflex Set [OM.PC] Stat Oth 10/20/20 20:27 Ordered Saline Lock Insert [OM.PC] Stat Oth 10/20/20 20:27 Ordered Medication Orders Sodium Chloride (Sodium Chloride 0.9% 10 Ml Syringe) 10 ml FLUSH ASDIRECTED PRN PRN Reason: Keep Vein Open Last Admin: 10/20/20 20:36 Dose: 10 ml Documented by: NAKITA Labs: Laboratory Tests 10/20/20 10/20/20 10/20/20 Range/Units 20:28 20:30 20:30 WBC 12.1 H (5.0-10.0) 10^3/uL RBC 3.97 L (4.6-6.2) 10^6/uL Hgb 12.7 L D (14.0-18.0) g/dL Hct 41.2 (40.0-54.0) % MCV 103.8 H (80-100) fL MCH 32.0 (27.0-34.0) pg MCHC 30.8 L (33.0-35.0) g/dL Plt Count 288 D (150-450) 10^3/uL Neut % (Auto) 75.6 H (42.2-75.2) % Lymph % (Auto) 15.1 L (20.5-50.1) % [place] % (Auto) 8.4 H (2-8) % Eos % (Auto) 0.7 L (1.0-3.0) % Baso % (Auto) 0.2 (0.0-1.0) % ABG pH 7.22 L (7.35-7.45) ABG pCO2 92 H* (35-45) mmHg ABG pO2 168 H (70-100) mmHg ABG HCO3 36.4 H (22-26) mmol/L ABG O2 Saturation 97 (95-100) % ABG Base Excess 6 H ((-2)-(+3)) mmol/L Rock Test Positive O2 Delivery Device Non rebr mask Sodium 138 (136-145) mmol/L Potassium 4.9 (3.5-5.1) mmol/L Chloride 98 (98-107) mmol/L Carbon Dioxide 33 H (21-32) mmol/L Anion Gap 11.9 (7-13) mEq/L BUN 27 H (7-18) mg/dL Creatinine 1.49 H (0.70-1.30) mg/dL Est Cr Clr Drug Dosing TNP Estimated GFR (MDRD) 46 BUN/Creatinine Ratio 18.1 (No establ ref range) Glucose 185 H (70-99) mg/dL Lactic Acid (0.4-2.0) mmol/L Calcium 9.3 (8.5-10.1) mg/dL Total Bilirubin 0.3 (0.2-1.0) mg/dL AST 21 (15-37) U/L ALT 22 (16-63) U/L Alkaline Phosphatase 76 (46-116) U/L Troponin I Cancelled Troponin I High Sens 8 (<=76) pg/mL B-Natriuretic Peptide 37 (0-100) pg/ml Total Protein 7.5 (6.4-8.2) g/dL Albumin 4.0 (3.4-5.0) g/dL Globulin 3.5 g/dL Albumin/Globulin Ratio 1.14 SARS-CoV-2 RNA (GARTH) (NEGATIVE) 10/20/20 10/20/20 10/20/20 Range/Units 20:30 20:30 21:22 WBC (5.0-10.0) 10^3/uL RBC (4.6-6.2) 10^6/uL Hgb (14.0-18.0) g/dL Hct (40.0-54.0) % MCV (80-100) fL MCH (27.0-34.0) pg MCHC (33.0-35.0) g/dL Plt Count (150-450) 10^3/uL Neut % (Auto) (42.2-75.2) % Lymph % (Auto) (20.5-50.1) % [place] % (Auto) (2-8) % Eos % (Auto) (1.0-3.0) % Baso % (Auto) (0.0-1.0) % ABG pH 7.33 L (7.35-7.45) ABG pCO2 68 H* (35-45) mmHg ABG pO2 60 L (70-100) mmHg ABG HCO3 35.0 H (22-26) mmol/L ABG O2 Saturation 87 L (95-100) % ABG Base Excess 7 H ((-2)-(+3)) mmol/L Rock Test Positive O2 Delivery Device Bipap Sodium (136-145) mmol/L Potassium (3.5-5.1) mmol/L Chloride (98-107) mmol/L Carbon Dioxide (21-32) mmol/L Anion Gap (7-13) mEq/L BUN (7-18) mg/dL Creatinine (0.70-1.30) mg/dL Est Cr Clr Drug Dosing Estimated GFR (MDRD) BUN/Creatinine Ratio (No establ ref range) Glucose (70-99) mg/dL Lactic Acid 2.2 H* (0.4-2.0) mmol/L Calcium (8.5-10.1) mg/dL Total Bilirubin (0.2-1.0) mg/dL AST (15-37) U/L ALT (16-63) U/L Alkaline Phosphatase (46-116) U/L Troponin I Troponin I High Sens (<=76) pg/mL B-Natriuretic Peptide (0-100) pg/ml Total Protein (6.4-8.2) g/dL Albumin (3.4-5.0) g/dL Globulin g/dL Albumin/Globulin Ratio SARS-CoV-2 RNA (GARTH) Positive H (NEGATIVE) Meds: Medications Generic Name Dose Route Start Last Admin Trade Name Freq PRN Reason Stop Dose Admin Sodium Chloride 10 ml 10/20/20 20:27 10/20/20 20:36 Sodium Chloride 0.9% 10 Ml Syringe FLUSH 10 ml ASDIRECTED PRN Administration Keep Vein Open Discontinued Medications Generic Name Dose Route Start Last Admin Trade Name Freq PRN Reason Stop Dose Admin Albuterol/Ipratropium 6 ml 10/20/20 20:28 10/20/20 20:36 Albuterol/Ipratropium 3.0-0.5 Mg/3 Ml Neb Breonna NEB 10/20/20 20:29 6 ml ONETIME ONE Administration Albuterol/Ipratropium 3 ml 10/20/20 20:59 10/20/20 21:06 Albuterol/Ipratropium 3.0-0.5 Mg/3 Ml Neb Soln NEB 10/20/20 21:00 3 ml ONETIME ONE Administration Dexamethasone 6 mg 10/20/20 21:22 10/20/20 22:01 Dexamethasone 4 Mg/Ml Sdv IVPUSH 10/20/20 21:23 6 mg ONETIME ONE Administration Sodium Chloride 1,000 mls @ 1,000 mls/hr 10/20/20 21:07 10/20/20 22:01 Normal Saline IV 10/20/20 22:06 1,000 mls/hr .BOLUS ONE Administration Methylprednisolone Sodium Succinate 125 mg 10/20/20 20:28 10/20/20 20:37 Methylprednisolone Sodium Succinate 125 Mg/2 Ml Sdv IVPUSH 10/20/20 20:29 125 mg ONETIME ONE Administration Methylprednisolone Sodium Succinate Confirm 10/20/20 20:28 10/20/20 20:37 Methylprednisolone Sodium Succinate 125 Mg/2 Ml Sdv Administered 10/20/20 20:29 Not Given Dose 125 mg .ROUTE .STK-MED ONE Departure - Departure Time of Disposition: 23:17 Disposition: DC/Tfer to Acute Hospital 02 Reason for Transfer *Q: Other (higher level of care) Condition: Serious Clinical Impression: COVID, Hypoxemia Forms: ED Department Discharge Sepsis Event Note (ED) - Focused Exam Vital Signs: Vital Signs Temp Pulse Resp BP Pulse Ox 10/20/20 20:58 97.8 F 115 H 40 H 149/78 H 43 L - My Orders Last 24 Hours: My Active Orders 10/20/20 20:27 CULTURE BLOOD [BC] Stat CULTURE BLOOD [BC] Stat UA RFX AMARA AND CULT IF INDIC [URIN] Stat Sodium Chloride 0.9% [Saline Flush] 10 ml FLUSH ASDIRECTED PRN Blood Culture x2 Reflex Set [OM.PC] Stat Saline Lock Insert [OM.PC] Stat 10/20/20 20:28 RT Aerosol Therapy [RC] ASDIRECTED 10/20/20 20:53 BiPAP [RESPCARE] Routine 10/20/20 20:59 RT Aerosol Therapy [RC] ASDIRECTED 10/20/20 23:06 LACTIC ACID [CHEM] Routine - Assessment/Plan Last 24 Hours: My Active Orders 10/20/20 20:27 CULTURE BLOOD [BC] Stat CULTURE BLOOD [BC] Stat UA RFX AMARA AND CULT IF INDIC [URIN] Stat Sodium Chloride 0.9% [Saline Flush] 10 ml FLUSH ASDIRECTED PRN Blood Culture x2 Reflex Set [OM.PC] Stat Saline Lock Insert [OM.PC] Stat 10/20/20 20:28 RT Aerosol Therapy [RC] ASDIRECTED 10/20/20 20:53 BiPAP [RESPCARE] Routine 10/20/20 20:59 RT Aerosol Therapy [RC] ASDIRECTED 10/20/20 23:06 LACTIC ACID [CHEM] Routine
[2020-10-20 20:41] LABS: O2 DELIVERY DEVICE NON REBR MASK
[2020-10-20 20:42] LABS: ALLEN TEST POSITIVE; BASE EXCESS ARTERIAL 6 mmol/L ((-2)-(+3)); BICARBONATE,ARTERIAL 36.4 mmol/L (22-26); O2 SATURATION ARTERIAL 97 % (95-100); PCO2 ARTERIAL 92 mmHg (35-45); PO2 ARTERIAL 168 mmHg (70-100)
[2020-10-20 21:01] VITALS: BP 149/78; PULSE 115
[2020-10-20] MEDS ORDERED: Sodium Chloride 0.9% 1,000 ML IV ONE (21:07)
[2020-10-20 21:08] LABS: ANION GAP 11.9 mEq/L (7-13); CHLORIDE,CL 98 mmol/L (98-107); SODIUM,NA 138 mmol/L (136-145)
--- NOTE | 2020-10-20 21:08 | CR ---
PROCEDURE INFORMATION: Exam: XR Chest Exam date and time: 10/20/2020 8:39 PM Age: 75 years old Clinical indication: Shortness of breath; Additional info: SOB TECHNIQUE: Imaging protocol: XR of the chest. Views: 1 view. COMPARISON: CR Chest 2V 10/09/2013 12:29 PM FINDINGS: Lungs: Hyperlucency in the left upper hemithorax. Diffuse hazy and reticular parenchymal opacities bilaterally. Pleural spaces: No evidence of right pneumothorax. Mild bilateral pleural effusions versus pleural thickening. Heart/Mediastinum: Unremarkable. No cardiomegaly. No mediastinal shift. Bones/joints: No evidence of acute osseous abnormality. IMPRESSION: 1. Probable left upper lung bulla, but pneumothorax is not entirely excluded. 2. Diffuse bilateral parenchymal opacities likely reflect a chronic interstitial process, but atypical infection or edema is not entirely excluded.
[2020-10-20] MEDS ORDERED: Dexamethasone 4 MG/ML SDV IVPUSH ONE (21:22)
[2020-10-20 22:02] LABS: O2 DELIVERY DEVICE BIPAP; PCO2 ARTERIAL 68 mmHg (35-45); PO2 ARTERIAL 60 mmHg (70-100)
[2020-10-20 22:03] LABS: ALLEN TEST POSITIVE; BASE EXCESS ARTERIAL 7 mmol/L ((-2)-(+3)); O2 SATURATION ARTERIAL 87 % (95-100)
--- NOTE | 2020-10-20 22:24 | CT ---
PROCEDURE INFORMATION: Exam: CT Chest Without Contrast; Diagnostic Exam date and time: 10/20/2020 9:45 PM Age: 75 years old Clinical indication: Other: Lung bulla vs pneumothorax; Additional info: ? Pneumo TECHNIQUE: Imaging protocol: Diagnostic computed tomography of the chest without contrast. Radiation optimization: All CT scans at this facility use at least one of these dose optimization techniques: automated exposure control; mA and/or kV adjustment per patient size (includes targeted exams where dose is matched to clinical indication); or iterative reconstruction. COMPARISON: CR Chest 1V Frontal 10/20/2020 8:39 PM FINDINGS: Lungs: Severe bullous emphysema, with large biapical bullae, left more pronounced than right. No consolidation. Pleural spaces: Unremarkable. No pneumothorax. No pleural effusion. Heart: Unremarkable. No cardiomegaly. No pericardial effusion. Aorta: The aorta demonstrates mild atherosclerotic calcification. No aortic aneurysm. Lymph nodes: There is no evidence of lymphadenopathy. Bones/joints: No acute fracture or dislocation. Soft tissues: Unremarkable. IMPRESSION: 1. No pneumothorax. No definite evidence of acute abnormality in the chest. 2. Severe bullous emphysema.
== END 2020-10-20 23:57 ==
LOC: DL.ED 20:13
DX: U07.1 COVID-19 (principal); R09.02 Hypoxemia; J44.9 Chronic obstructive pulmonary disease, unspecified; I50.9 Heart failure, unspecified; Z79.899 Other long term (current) drug therapy
CPT/HCPCS: 36415; 36600; 71045; 71250; 80053; 82803; 83605; 83880; 84484; 85025; 87040; 93005; 94640; 96374; 96375; 99285; J1100; J2930; J7030; U0002; J7620-GY

== ENCOUNTER 2022-05-11 21:00 | Observation (INO) | payer MEDICARE, BC ==
[2022-05-11] MEDS: Sodium Chloride 0.9% 10 ML Syringe FLUSH PRN (21:05)
[2022-05-11] MEDS ORDERED: methylPREDNISolone Sodium Succinate 125 MG/2 ML SDV IVPUSH ONE (21:08)
[2022-05-11] MEDS ORDERED: Albuterol/Ipratropium 3.0-0.5 MG/3 ML Neb Soln NEB ONE (21:08)
[2022-05-11 21:30] LABS: ANION GAP 13.1 mEq/L (7-13)
[2022-05-11 21:55] LABS: CORONAVIRUS COVID-19 NAA NEGATIVE (NEGATIVE); RESPIRATORY SYNCYTIAL VIR NAA NEGATIVE (NEGATIVE)
[2022-05-11] MEDS ORDERED: Azithromycin 500 MG in Sodium Chloride 0.9% 250 ML IV ONE (23:10)
[2022-05-12] MEDS ORDERED: Ondansetron 4 MG/2 ML SDV IVPUSH PRN (03:40)
[2022-05-12] MEDS ORDERED: Acetaminophen/HYDROcodone 325-5 MG Tab PO PRN (03:40)
[2022-05-12] MEDS ORDERED: Albuterol/Ipratropium 3.0-0.5 MG/3 ML Neb Soln NEB PRN ×2 (03:40→03:46)
[2022-05-12] MEDS ORDERED: Docusate Sodium 100 MG Cap PO PRN (03:40)
[2022-05-12] MEDS ORDERED: Acetaminophen 325 MG Tab PO PRN (03:40)
[2022-05-12] MEDS ORDERED: 50% Dextrose in Water 50 ML Syringe IVPUSH PRN (03:52)
[2022-05-12] MEDS ORDERED: Glucagon,Human Recombinant 1 MG Vial IM PRN (03:52)
[2022-05-12] MEDS ORDERED: cefTRIAXone 1 GM Vial IVPUSH SCH ×2 (04:00→21:00)
[2022-05-12] MEDS: methylPREDNISolone Sodium Succinate 40 MG/1 ML SDV IVPUSH SCH ×2 (05:35→12:12)
[2022-05-12 07:26] LABS: ANION GAP 10.9 mEq/L (7-13)
[2022-05-12] MEDS: Insulin Lispro 100 Units/ML 3 ML Vial SUBCUT SCH ×2 (08:19→12:05)
[2022-05-12 08:22] VITALS: BP 111/56; PULSE 70
[2022-05-12] MEDS ORDERED: Nicotine 21 MG/24 Hr Patch TRDERM SCH (09:00)
[2022-05-12] MEDS ORDERED: Sertraline 50 MG Tab PO SCH (09:00)
[2022-05-12] MEDS ORDERED: Azithromycin 250 MG Tab PO SCH (09:00)
[2022-05-12] MEDS ORDERED: Furosemide 20 MG Tab PO SCH (09:00)
[2022-05-12] MEDS ORDERED: Enoxaparin 40 MG/0.4 ML Syringe SUBCUT SCH (09:00)
[2022-05-12] MEDS ORDERED: Budesonide 0.5 MG/2 ML Neb Susp NEB SCH (09:00)
[2022-05-12] MEDS ORDERED: Metoprolol Succinate 25 MG Tab.ER PO SCH (09:00)
[2022-05-12] MEDS: Sodium Chloride 0.9% 10 ML Syringe FLUSH PRN (12:12)
[2022-05-12] MEDS ORDERED: Simvastatin 10 MG Tab PO SCH (21:00)
[2022-05-12] MEDS ORDERED: Tamsulosin 0.4 MG Cap.ER PO SCH (21:00)
[2022-05-14] MEDS ORDERED: Furosemide 20 MG Tab PO SCH (09:00)
[2022-05-17] MEDS ORDERED: Furosemide 20 MG Tab PO SCH (09:00)
[2022-05-30] MEDS ORDERED: Furosemide 20 MG Tab PO SCH (09:00)
== END 2022-05-12 14:33 | disposition home or self-care (01) ==
LOC: DL.ED 21:00 → INTOOBSV 23:29 → DL.MS 23:29
PROVIDERS: ADMIT Internal Medicine; ATTEND Internal Medicine
DX: J44.1 Chronic obstructive pulmonary disease with (acute) exacerbation (principal); J96.21 Acute and chronic respiratory failure with hypoxia; N17.9 Acute kidney failure, unspecified; E78.00 Pure hypercholesterolemia, unspecified; I50.9 Heart failure, unspecified; Z87.891 Personal history of nicotine dependence; Z79.899 Other long term (current) drug therapy; Z20.822 Contact with and (suspected) exposure to COVID-19
CPT/HCPCS: 0241U; 36415; 71045; 80048; 80053; 82947; 83880; 84484; 85025; 93005; 93010; 94640; 96365; 96372; 96375; 96376; 99284; 99285-25; A9270-GY; G0378; J0456; J1650; J2920; J2930; J3490; J7050; J7620-GY

== ENCOUNTER 2022-06-26 12:48 | Inpatient (IN) | payer MEDICARE, BC ==
[2022-06-26] MEDS ORDERED: Albuterol/Ipratropium 3.0-0.5 MG/3 ML Neb Soln ONE (12:57)
[2022-06-26] MEDS ORDERED: methylPREDNISolone Sodium Succinate 125 MG/2 ML SDV ONE (12:57)
[2022-06-26] MEDS ORDERED: methylPREDNISolone Sodium Succinate 125 MG/2 ML SDV IVPUSH ONE (12:57)
[2022-06-26] MEDS ORDERED: Albuterol/Ipratropium 3.0-0.5 MG/3 ML Neb Soln NEB ONE (12:57)
[2022-06-26 13:06] LABS: O2 DELIVERY DEVICE NASAL CANNULA
[2022-06-26 13:11] LABS: O2 SATURATION VENOUS 65 % (60-80); PCO2 VENOUS 89 mmHg (41-51); PH,VENOUS 7.28 (7.31-7.41); PO2 VENOUS 41 mmHg (35-42)
[2022-06-26 13:12] LABS: BASE EXCESS VENOUS 15 mmol/l ((-2)-(+3)); BICARBONATE,VENOUS 42 mmol/l (19-25)
[2022-06-26 13:38] LABS: ANION GAP 9.4 mEq/L (7-13); CHLORIDE,CL 100 mmol/L (98-107); SODIUM,NA 143 mmol/L (136-145)
[2022-06-26 13:42] LABS: CORONAVIRUS COVID-19 NAA NEGATIVE (NEGATIVE); RESPIRATORY SYNCYTIAL VIR NAA NEGATIVE (NEGATIVE)
[2022-06-26 13:45] LABS: ESTIMATED GFR 44 mL/min (>=60)
[2022-06-26 15:11] LABS: O2 DELIVERY DEVICE NASAL CANNULA
[2022-06-26 15:14] LABS: BASE EXCESS VENOUS 10.2 mmol/l ((-2)-(+3)); BICARBONATE,VENOUS 41 mmol/l (19-25); O2 SATURATION VENOUS 82.1 % (60-80); PH,VENOUS 7.25 (7.31-7.41); PO2 VENOUS 52 mmHg (35-42)
[2022-06-26 15:16] LABS: PCO2 VENOUS 98 mmHg (41-51)
[2022-06-26] MEDS ORDERED: Magnesium Sulfate/Water 2 GM in Premix Bag 1 BAG IV ONE (16:04)
[2022-06-26] MEDS ORDERED: Azithromycin 500 MG in Sodium Chloride 0.9% 250 ML IV ONE (16:04)
[2022-06-26] MEDS ORDERED: Magnesium Hydroxide 400 MG/5 ML Susp 30 ML Cup PO PRN (16:06)
[2022-06-26] MEDS ORDERED: Ondansetron 4 MG/2 ML SDV IVPUSH PRN (16:06)
[2022-06-26] MEDS ORDERED: HYDROmorphone 0.5 MG/0.5 ML Syringe IVPUSH PRN (16:06)
[2022-06-26] MEDS ORDERED: Acetaminophen 325 MG Tab PO PRN (16:06)
[2022-06-26] MEDS ORDERED: Sodium Chloride 0.9% 10 ML Syringe FLUSH PRN (16:06)
[2022-06-26] MEDS ORDERED: Polyethylene Glycol 3350 Powder 17 GM Packet PO PRN (16:06)
[2022-06-26] MEDS ORDERED: Metoprolol Tartrate 5 MG/5 ML SDV IVPUSH PRN (16:18)
[2022-06-26] MEDS ORDERED: hydrALAZINE 20 MG/ML SDV IVPUSH PRN (16:18)
[2022-06-26] MEDS ORDERED: guaiFENesin/Dextromethorphan 100-10 MG/5 ML Soln 5 ML Cup PO PRN (16:22)
[2022-06-26] MEDS ORDERED: Ziprasidone Mesylate 20 MG Vial IM PRN (16:25)
[2022-06-26] MEDS ORDERED: Sodium Chloride 0.9% 1,500 ML IV SCH (16:30)
[2022-06-26] MEDS: Budesonide 0.5 MG/2 ML Neb Susp INH SCH (18:06)
[2022-06-26] MEDS: methylPREDNISolone Sodium Succinate 125 MG/2 ML SDV IVPUSH SCH ×2 (18:08→23:32)
[2022-06-26] MEDS ORDERED: Glucagon,Human Recombinant 1 MG Vial IM PRN (18:43)
[2022-06-26] MEDS ORDERED: 50% Dextrose in Water 50 ML Syringe IVPUSH PRN (18:43)
[2022-06-26] MEDS: Sodium Chloride 0.9% 10 ML Syringe FLUSH SCH (20:03)
[2022-06-26] MEDS: OFLOXACIN EYELF SCH (20:25)
[2022-06-26] MEDS: guaiFENesin 600 MG Tab.ER PO SCH (20:32)
[2022-06-26] MEDS: Tamsulosin 0.4 MG Cap.ER PO SCH (20:32)
[2022-06-27] MEDS: methylPREDNISolone Sodium Succinate 125 MG/2 ML SDV IVPUSH SCH ×3 (05:30→18:24)
[2022-06-27 06:01] LABS: ANION GAP 3.9 mEq/L (7-13)
[2022-06-27] MEDS ORDERED: Sodium Bicarbonate 650 MG Tab PO ONE (08:00)
[2022-06-27] MEDS: OFLOXACIN EYELF SCH ×4 (08:00→20:37)
[2022-06-27] MEDS: Sertraline 50 MG Tab PO SCH (08:07)
[2022-06-27] MEDS: guaiFENesin 600 MG Tab.ER PO SCH ×2 (08:07→20:39)
[2022-06-27] MEDS: Simvastatin 10 MG Tab PO SCH (08:09)
[2022-06-27] MEDS: Metoprolol Succinate 25 MG Tab.ER PO SCH (08:09)
[2022-06-27] MEDS: Insulin Lispro 100 Units/ML 3 ML Vial SUBCUT SCH ×3 (08:14→16:49)
[2022-06-27] MEDS: Sodium Chloride 0.9% 10 ML Syringe FLUSH SCH ×2 (08:53→20:39)
[2022-06-27] MEDS: Furosemide 20 MG Tab PO SCH (09:17)
[2022-06-27] MEDS: Fluticasone NASAL Spray 16 GM Bottle NASBOTH SCH (09:18)
[2022-06-27] MEDS: Formoterol 20 MCG/2 ML Neb *OWN MED INH SCH ×2 (10:55→18:07)
[2022-06-27] MEDS: Budesonide 0.5 MG/2 ML Neb Susp INH SCH ×2 (11:20→18:23)
[2022-06-27] MEDS: Tamsulosin 0.4 MG Cap.ER PO SCH (20:39)
[2022-06-27] MEDS: Sodium Bicarbonate 650 MG Tab PO SCH (20:39)
[2022-06-27] MEDS ORDERED: Montelukast 10 MG Tab PO SCH (21:00)
[2022-06-28] MEDS: methylPREDNISolone Sodium Succinate 125 MG/2 ML SDV IVPUSH SCH ×3 (00:06→11:36)
[2022-06-28 06:01] LABS: ANION GAP 2.9 mEq/L (7-13)
[2022-06-28] MEDS: Formoterol 20 MCG/2 ML Neb *OWN MED INH SCH (06:06)
[2022-06-28] MEDS: Budesonide 0.5 MG/2 ML Neb Susp INH SCH (06:13)
[2022-06-28] MEDS: Insulin Lispro 100 Units/ML 3 ML Vial SUBCUT SCH (08:01)
[2022-06-28] MEDS: Metoprolol Succinate 25 MG Tab.ER PO SCH (08:08)
[2022-06-28] MEDS: Sertraline 50 MG Tab PO SCH (08:08)
[2022-06-28] MEDS: Furosemide 20 MG Tab PO SCH (08:08)
[2022-06-28 08:09] VITALS: BP 110/59; PULSE 57
[2022-06-28] MEDS: Sodium Bicarbonate 650 MG Tab PO SCH (08:09)
[2022-06-28] MEDS: guaiFENesin 600 MG Tab.ER PO SCH (08:09)
[2022-06-28] MEDS: Simvastatin 10 MG Tab PO SCH (08:09)
[2022-06-28] MEDS: Fluticasone NASAL Spray 16 GM Bottle NASBOTH SCH (08:10)
[2022-06-28] MEDS: OFLOXACIN EYELF SCH (08:52)
[2022-06-28] MEDS: Sodium Chloride 0.9% 10 ML Syringe FLUSH SCH (08:53)
== END 2022-06-28 12:00 | disposition home or self-care (01) | DRG 189 ==
LOC: DL.ED 12:48 → DL.MS 15:46 → DL.ED 15:53
PROVIDERS: ADMIT Internal Medicine; ATTEND Internal Medicine
PROC: 3E0F7SF Introduction of Other Gas into Respiratory Tract, Via Natural or Artificial Opening (ICD-10-PCS; principal; 2022-06-26)
DX: J96.21 Acute and chronic respiratory failure with hypoxia (principal); G93.41 Metabolic encephalopathy; R64 Cachexia; J84.9 Interstitial pulmonary disease, unspecified; I13.0 Hypertensive heart and chronic kidney disease with heart failure and stage 1 through stage 4 chronic kidney disease, or unspecified chronic kidney disease; I50.32 Chronic diastolic (congestive) heart failure; Z68.1 Body mass index [BMI] 19.9 or less, adult; J96.22 Acute and chronic respiratory failure with hypercapnia; Z20.822 Contact with and (suspected) exposure to COVID-19; J43.9 Emphysema, unspecified; I27.20 Pulmonary hypertension, unspecified; M62.50 Muscle wasting and atrophy, not elsewhere classified, unspecified site; D63.1 Anemia in chronic kidney disease; H54.7 Unspecified visual loss; N40.0 Benign prostatic hyperplasia without lower urinary tract symptoms; F32.A Depression, unspecified; N18.31 Chronic kidney disease, stage 3a; E78.00 Pure hypercholesterolemia, unspecified; H91.93 Unspecified hearing loss, bilateral; Z98.42 Cataract extraction status, left eye; Z87.01 Personal history of pneumonia (recurrent); Z79.52 Long term (current) use of systemic steroids; Z79.899 Other long term (current) drug therapy; Z87.891 Personal history of nicotine dependence
CPT/HCPCS: 0241U; 36415; 71045; 80053; 82803; 82947; 83605; 83735; 83880; 84484; 85025; 85610; 85730; 86140; 93005; 94640; A9270-GY; J0456; J1815-GY; J2930; J3475; J3490; J7030; J7050; J7606; J7620-GY

== ENCOUNTER 2023-02-25 13:44 | Emergency (ER) | payer MEDICARE, BC ==
[2023-02-25] MEDS: Albuterol/Ipratropium 3.0-0.5 MG/3 ML Neb Soln NEB ONE (14:08)
[2023-02-25] MEDS: Magnesium Sulfate/Water 2 GM in Premix Bag 1 BAG IV ONE (14:15)
[2023-02-25] MEDS: Dexamethasone 4 MG/ML SDV IVPUSH ONE (14:17)
[2023-02-25 14:19] LABS: BASOPHILS PERCENT AUTO 0.3 % (0.0-1.0); EOSINOPHILS PERCENT AUTO 0.8 % (1.0-3.0); HEMOGLOBIN 12.8 g/dL (14.0-18.0); LYMPHOCYTES PERCENT AUTO 6.1 % (20.5-50.1); MEAN CORPUSCULAR HEMOGLOBIN 30.7 pg (27.0-34.0); MEAN CORPUSCULAR HGB CONC 30.5 g/dL (33.0-35.0); MEAN CORPUSCULAR VOLUME 100.7 fL (80-100); MONOCYTES PERCENT AUTO 13.7 % (2-8); NEUTROPHILS PERCENT AUTO 79.1 % (42.2-75.2); PLATELET COUNT,PLT 236 10^3/uL (150-450); RED BLOOD CELL COUNT 4.17 10^6/uL (4.6-6.2); WHITE BLOOD CELL COUNT,WBC 7.6 10^3/uL (5.0-10.0)
[2023-02-25] MEDS: Albuterol/Ipratropium 3.0-0.5 MG/3 ML Neb Soln ONE (14:23)
[2023-02-25] MEDS: Sodium Chloride 0.9% 10 ML Syringe FLUSH PRN (14:24)
[2023-02-25 14:39] LABS: ALANINE AMINOTRANSFERASE,ALT 14 U/L (16-63); ALBUMIN 3.6 g/dL (3.4-5.0); ALKALINE PHOSPHATASE 89 U/L (46-116); ANION GAP 12.9 mEq/L (7-13); ASPARTATE AMNIOTRANSFERASE,AST 16 U/L (15-37); BILIRUBIN TOTAL 0.3 mg/dL (0.2-1.0); BLOOD UREA NITROGEN,BUN 26 mg/dL (7-18); BUN/CREATININE RATIO 17.4 (No establ ref range); CALCIUM 8.8 mg/dL (8.5-10.1); CARBON DIOXIDE,CO2 34 mmol/L (21-32); CHLORIDE,CL 99 mmol/L (98-107); CREATININE 1.49 mg/dL (0.70-1.30); GLUCOSE RANDOM 96 mg/dL (70-99); POTASSIUM,K 3.9 mmol/L (3.5-5.1); PROTEIN TOTAL,TP 7.3 g/dL (6.4-8.2); SODIUM,NA 142 mmol/L (136-145)
[2023-02-25 14:40] VITALS: BP 119/64; PULSE 94
[2023-02-25 14:42] LABS: LACTIC ACID 1.1 mmol/L (0.4-2.0)
[2023-02-25 14:44] LABS: ESTIMATED GFR 48 mL/min (>=60)
[2023-02-25 15:24] LABS: CORONAVIRUS COVID-19 NAA NEGATIVE (NEGATIVE); INFLUENZA A NAA NEGATIVE (NEGATIVE); INFLUENZA B NAA NEGATIVE (NEGATIVE)
== END 2023-02-25 15:51 | disposition home or self-care (01) ==
LOC: DL.ED 13:44
DX: J44.1 Chronic obstructive pulmonary disease with (acute) exacerbation (principal); E78.00 Pure hypercholesterolemia, unspecified; Z20.822 Contact with and (suspected) exposure to COVID-19; Z79.899 Other long term (current) drug therapy; Z86.16 Personal history of COVID-19
CPT/HCPCS: 0240U; 36415; 71045; 80053; 83605; 85025; 86140; 87040; 94010; 94640; 94667; 96374; 96375; 99284-25; J1100; J3475; J3490; J7620-GY

== ENCOUNTER 2023-02-26 10:08 | Inpatient (IN) | payer MEDICARE, BC ==
[2023-02-26] MEDS ORDERED: Albuterol/Ipratropium 3.0-0.5 MG/3 ML Neb Soln NEB ONE ×2 (10:17)
[2023-02-26] MEDS ORDERED: Magnesium Sulfate/Water 2 GM in Premix Bag 1 BAG IV ONE (10:17)
[2023-02-26 10:41] LABS: BASOPHILS PERCENT AUTO 0.1 % (0.0-1.0); HEMOGLOBIN 12.2 g/dL (14.0-18.0); LYMPHOCYTES PERCENT AUTO 2.8 % (20.5-50.1); MEAN CORPUSCULAR HEMOGLOBIN 31.4 pg (27.0-34.0); MEAN CORPUSCULAR HGB CONC 31.3 g/dL (33.0-35.0); MEAN CORPUSCULAR VOLUME 100.3 fL (80-100); MONOCYTES PERCENT AUTO 8.1 % (2-8); PLATELET COUNT,PLT 248 10^3/uL (150-450); RED BLOOD CELL COUNT 3.89 10^6/uL (4.6-6.2); WHITE BLOOD CELL COUNT,WBC 10.7 10^3/uL (5.0-10.0)
[2023-02-26 10:51] LABS: ALBUMIN 3.5 g/dL (3.4-5.0); ANION GAP 10.7 mEq/L (7-13); BILIRUBIN TOTAL 0.3 mg/dL (0.2-1.0); BUN/CREATININE RATIO 18.2 (No establ ref range); CREATININE 1.43 mg/dL (0.70-1.30); EST CRCL DRUG DOSING (CG) 33.83 mL/min; POTASSIUM,K 3.7 mmol/L (3.5-5.1); PROTEIN TOTAL,TP 7.1 g/dL (6.4-8.2)
[2023-02-26] MEDS ORDERED: Sodium Chloride 0.9% 10 ML Syringe FLUSH PRN (12:47)
[2023-02-26] MEDS ORDERED: Ondansetron 4 MG Tab.DIS PO PRN (12:47)
[2023-02-26] MEDS ORDERED: Docusate Sodium 100 MG Cap PO PRN (12:47)
[2023-02-26] MEDS ORDERED: Acetaminophen 325 MG Tab PO PRN (12:47)
[2023-02-26] MEDS ORDERED: Albuterol/Ipratropium 3.0-0.5 MG/3 ML Neb Soln NEB PRN (12:52)
[2023-02-26] MEDS: cefTRIAXone 1 GM Vial IVPUSH SCH (14:00)
[2023-02-26] MEDS: methylPREDNISolone Sodium Succinate 40 MG/1 ML SDV IVPUSH SCH ×3 (14:05→22:09)
[2023-02-26] MEDS: Azithromycin 500 MG in Sodium Chloride 0.9% 250 ML IV SCH (14:10)
[2023-02-26] MEDS: Arformoterol 15 MCG/2 ML Neb Soln INH SCH (18:40)
[2023-02-26] MEDS: Tamsulosin 0.4 MG Cap.ER PO SCH (22:08)
[2023-02-26] MEDS: atorvaSTATin 10 MG Tab PO SCH (22:08)
[2023-02-26] MEDS: Albuterol/Ipratropium 3.0-0.5 MG/3 ML Neb Soln NEB SCH (22:15)
[2023-02-27] MEDS: Albuterol/Ipratropium 3.0-0.5 MG/3 ML Neb Soln NEB SCH ×6 (03:57→21:13)
[2023-02-27] MEDS: Arformoterol 15 MCG/2 ML Neb Soln INH SCH ×2 (05:22→18:28)
[2023-02-27] MEDS: methylPREDNISolone Sodium Succinate 40 MG/1 ML SDV IVPUSH SCH ×3 (05:34→21:13)
[2023-02-27 06:19] LABS: HEMATOCRIT 37.9 % (40.0-54.0); HEMOGLOBIN 11.6 g/dL (14.0-18.0); LYMPHOCYTES PERCENT AUTO 3.5 % (20.5-50.1); MEAN CORPUSCULAR HGB CONC 30.6 g/dL (33.0-35.0); MEAN CORPUSCULAR VOLUME 101.3 fL (80-100); MONOCYTES PERCENT AUTO 4.5 % (2-8); PLATELET COUNT,PLT 256 10^3/uL (150-450); RED BLOOD CELL COUNT 3.74 10^6/uL (4.6-6.2); WHITE BLOOD CELL COUNT,WBC 11.1 10^3/uL (5.0-10.0)
[2023-02-27 06:35] LABS: ANION GAP 10.1 mEq/L (7-13); CALCIUM 8.7 mg/dL (8.5-10.1); CREATININE 1.33 mg/dL (0.70-1.30); EST CRCL DRUG DOSING (CG) 36.38 mL/min; POTASSIUM,K 4.1 mmol/L (3.5-5.1)
[2023-02-27] MEDS: Furosemide 40 MG Tab PO SCH (10:02)
[2023-02-27] MEDS: Enoxaparin 30 MG/0.3 ML Syringe SUBCUT SCH (10:02)
[2023-02-27] MEDS: Sertraline 50 MG Tab PO SCH (10:05)
[2023-02-27] MEDS: Metoprolol Succinate 25 MG Tab.ER PO SCH (10:06)
[2023-02-27] MEDS: Azithromycin 500 MG in Sodium Chloride 0.9% 250 ML IV SCH (15:05)
[2023-02-27] MEDS: cefTRIAXone 1 GM Vial IVPUSH SCH (15:05)
[2023-02-27] MEDS: atorvaSTATin 10 MG Tab PO SCH (21:13)
[2023-02-27] MEDS: Tamsulosin 0.4 MG Cap.ER PO SCH (21:13)
[2023-02-27] MEDS ORDERED: Metoprolol Succinate 25 MG Tab.ER PO ONE (21:30)
[2023-02-28] MEDS: Albuterol/Ipratropium 3.0-0.5 MG/3 ML Neb Soln NEB SCH ×6 (02:11→21:01)
[2023-02-28] MEDS: methylPREDNISolone Sodium Succinate 40 MG/1 ML SDV IVPUSH SCH ×3 (05:11→21:02)
[2023-02-28] MEDS: Arformoterol 15 MCG/2 ML Neb Soln INH SCH ×2 (05:44→17:15)
[2023-02-28] MEDS: Sertraline 50 MG Tab PO SCH (09:43)
[2023-02-28] MEDS: Furosemide 40 MG Tab PO SCH (09:44)
[2023-02-28] MEDS: Enoxaparin 30 MG/0.3 ML Syringe SUBCUT SCH (09:45)
[2023-02-28] MEDS: Metoprolol Succinate 25 MG Tab.ER PO SCH (09:46)
[2023-02-28] MEDS: cefTRIAXone 1 GM Vial IVPUSH SCH (12:37)
[2023-02-28] MEDS: Azithromycin 500 MG in Sodium Chloride 0.9% 250 ML IV SCH (12:37)
[2023-02-28] MEDS: Tamsulosin 0.4 MG Cap.ER PO SCH (21:01)
[2023-02-28] MEDS: atorvaSTATin 10 MG Tab PO SCH (21:02)
[2023-03-01] MEDS: Albuterol/Ipratropium 3.0-0.5 MG/3 ML Neb Soln NEB SCH ×5 (02:15→18:32)
[2023-03-01] MEDS: Arformoterol 15 MCG/2 ML Neb Soln INH SCH ×2 (05:10→18:33)
[2023-03-01] MEDS: methylPREDNISolone Sodium Succinate 40 MG/1 ML SDV IVPUSH SCH ×3 (05:33→21:07)
[2023-03-01] MEDS: Metoprolol Succinate 25 MG Tab.ER PO SCH (09:46)
[2023-03-01] MEDS: Enoxaparin 30 MG/0.3 ML Syringe SUBCUT SCH (09:46)
[2023-03-01] MEDS: Sertraline 50 MG Tab PO SCH (09:46)
[2023-03-01] MEDS: cefTRIAXone 1 GM Vial IVPUSH SCH (13:27)
[2023-03-01] MEDS: Azithromycin 500 MG in Sodium Chloride 0.9% 250 ML IV SCH (13:36)
[2023-03-01] MEDS: atorvaSTATin 10 MG Tab PO SCH (21:07)
[2023-03-01] MEDS: Tamsulosin 0.4 MG Cap.ER PO SCH (21:07)
[2023-03-02] MEDS: Arformoterol 15 MCG/2 ML Neb Soln INH SCH ×2 (05:00→18:16)
[2023-03-02] MEDS: Albuterol/Ipratropium 3.0-0.5 MG/3 ML Neb Soln NEB SCH ×4 (05:00→18:15)
[2023-03-02] MEDS: methylPREDNISolone Sodium Succinate 40 MG/1 ML SDV IVPUSH SCH ×3 (05:10→21:31)
[2023-03-02] MEDS: Furosemide 40 MG Tab PO SCH (08:59)
[2023-03-02] MEDS: Sertraline 50 MG Tab PO SCH (09:00)
[2023-03-02] MEDS: Enoxaparin 30 MG/0.3 ML Syringe SUBCUT SCH (09:01)
[2023-03-02] MEDS: Metoprolol Succinate 25 MG Tab.ER PO SCH (09:18)
[2023-03-02] MEDS: cefTRIAXone 1 GM Vial IVPUSH SCH (14:10)
[2023-03-02] MEDS: Azithromycin 500 MG in Sodium Chloride 0.9% 250 ML IV SCH (14:15)
[2023-03-02] MEDS: atorvaSTATin 10 MG Tab PO SCH (21:31)
[2023-03-02] MEDS: Tamsulosin 0.4 MG Cap.ER PO SCH (21:31)
[2023-03-03] MEDS: Arformoterol 15 MCG/2 ML Neb Soln INH SCH (05:05)
[2023-03-03] MEDS: Albuterol/Ipratropium 3.0-0.5 MG/3 ML Neb Soln NEB SCH ×2 (05:08→09:19)
[2023-03-03] MEDS: methylPREDNISolone Sodium Succinate 40 MG/1 ML SDV IVPUSH SCH (05:24)
[2023-03-03] MEDS: Sertraline 50 MG Tab PO SCH (08:15)
[2023-03-03] MEDS: Enoxaparin 30 MG/0.3 ML Syringe SUBCUT SCH (08:15)
[2023-03-03] MEDS: Metoprolol Succinate 25 MG Tab.ER PO SCH (08:15)
[2023-03-03 13:29] VITALS: BP 121/71; PULSE 81
== END 2023-03-03 12:45 | disposition home or self-care (01) | DRG 191 ==
LOC: DL.ED 10:08 → DL.MS 11:04 → DL.ED 12:24
PROVIDERS: ADMIT Internal Medicine; ATTEND Internal Medicine
PROC: 5A09357 Assistance with Respiratory Ventilation, Less than 24 Consecutive Hours, Continuous Positive Airway Pressure (ICD-10-PCS; principal; 2023-02-26)
DX: J44.1 Chronic obstructive pulmonary disease with (acute) exacerbation (principal); J84.9 Interstitial pulmonary disease, unspecified; I50.810 Right heart failure, unspecified; N40.0 Benign prostatic hyperplasia without lower urinary tract symptoms; I50.9 Heart failure, unspecified; R09.02 Hypoxemia; I11.0 Hypertensive heart disease with heart failure; R53.81 Other malaise; I27.20 Pulmonary hypertension, unspecified; Z77.118 Contact with and (suspected) exposure to other environmental pollution; E78.00 Pure hypercholesterolemia, unspecified; H91.90 Unspecified hearing loss, unspecified ear; Z87.01 Personal history of pneumonia (recurrent); Z99.81 Dependence on supplemental oxygen; Z79.899 Other long term (current) drug therapy; Z87.891 Personal history of nicotine dependence; Z86.16 Personal history of COVID-19; Z77.110 Contact with and (suspected) exposure to air pollution; Z98.890 Other specified postprocedural states
CPT/HCPCS: 36415; 71045; 80053; 83880; 85025; J3475; 80048; 94010; 94060; 94640; 94667; 94668; 96374; 99284; 99285-25; A9270-GY; J0456; J0696; J1650; J2920; J3490; J7050; J7620-GY

== ENCOUNTER 2023-04-02 05:40 | Inpatient (IN) | payer MEDICARE, BC ==
[2023-04-02 06:20] LABS: BASOPHILS PERCENT AUTO 0.2 % (0.0-1.0); EOSINOPHILS PERCENT AUTO 1.2 % (1.0-3.0); HEMATOCRIT 38.2 % (40.0-54.0); HEMOGLOBIN 11.5 g/dL (14.0-18.0); MEAN CORPUSCULAR HEMOGLOBIN 31.1 pg (27.0-34.0); MEAN CORPUSCULAR HGB CONC 30.1 g/dL (33.0-35.0); MEAN CORPUSCULAR VOLUME 103.2 fL (80-100); MONOCYTES PERCENT AUTO 9.9 % (2-8); NEUTROPHILS PERCENT AUTO 85.7 % (42.2-75.2); PLATELET COUNT,PLT 312 10^3/uL (150-450); WHITE BLOOD CELL COUNT,WBC 11.7 10^3/uL (5.0-10.0)
[2023-04-02] MEDS: Sodium Chloride 0.9% 10 ML Syringe FLUSH PRN (06:32)
[2023-04-02 06:34] LABS: ALANINE AMINOTRANSFERASE,ALT 19 U/L (16-63); ALBUMIN 2.8 g/dL (3.4-5.0); ALKALINE PHOSPHATASE 71 U/L (46-116); ASPARTATE AMNIOTRANSFERASE,AST 20 U/L (15-37); BILIRUBIN TOTAL 0.3 mg/dL (0.2-1.0); BLOOD UREA NITROGEN,BUN 43 mg/dL (7-18); BUN/CREATININE RATIO 33.6 (No establ ref range); CALCIUM 8.9 mg/dL (8.5-10.1); CARBON DIOXIDE,CO2 42 mmol/L (21-32); CHLORIDE,CL 101 mmol/L (98-107); CREATININE 1.28 mg/dL (0.70-1.30); EST CRCL DRUG DOSING (CG) 37.17 mL/min; GLUCOSE RANDOM 168 mg/dL (70-99); PROTEIN TOTAL,TP 6.7 g/dL (6.4-8.2); SODIUM,NA 144 mmol/L (136-145)
[2023-04-02 06:37] LABS: A/G RATIO 0.72; ESTIMATED GFR 58 mL/min (>=60); ETHANOL BLOOD MEDICAL < 3 mg/dL (0)
[2023-04-02] MEDS: methylPREDNISolone Sodium Succinate 125 MG/2 ML SDV IVPUSH ONE (06:41)
[2023-04-02 07:35] LABS: O2 DELIVERY DEVICE NASAL CANNULA
[2023-04-02 07:36] LABS: BASE EXCESS ARTERIAL 13 mmol/L ((-2)-(+3)); O2 SATURATION ARTERIAL 92 % (95-100); PH,ARTERIAL 7.28 (7.35-7.45); PO2 ARTERIAL 80 mmHg (70-100)
[2023-04-02 07:41] LABS: ALLEN TEST positive; PCO2 ARTERIAL 92 mmHg (35-45)
[2023-04-02] MEDS: Albuterol/Ipratropium 3.0-0.5 MG/3 ML Neb Soln NEB ONE (09:15)
[2023-04-02] MEDS: cefTRIAXone 1 GM Vial IVPUSH ONE (09:43)
[2023-04-02] MEDS: Azithromycin 500 MG in Sodium Chloride 0.9% 250 ML IV ONE (09:43)
[2023-04-02] MEDS ORDERED: Metoprolol Tartrate 5 MG/5 ML SDV IVPUSH PRN (12:03)
[2023-04-02] MEDS ORDERED: hydrALAZINE 20 MG/ML SDV IVPUSH PRN (12:03)
[2023-04-02] MEDS ORDERED: Naloxone 2 MG/2 ML Syringe IVPUSH PRN (12:08)
[2023-04-02] MEDS ORDERED: Polyethylene Glycol 3350 Powder 17 GM Packet PO PRN (12:08)
[2023-04-02] MEDS ORDERED: Sennosides/Docusate Sodium 50-8.6 MG Tab PO PRN (12:08)
[2023-04-02] MEDS ORDERED: Acetaminophen/oxyCODONE 325-5 MG Tab PO PRN (12:08)
[2023-04-02] MEDS ORDERED: Magnesium Hydroxide 400 MG/5 ML Susp 30 ML Cup PO PRN (12:08)
[2023-04-02] MEDS ORDERED: Ondansetron 4 MG/2 ML SDV IVPUSH PRN (12:08)
[2023-04-02] MEDS ORDERED: Acetaminophen 325 MG Tab PO PRN (12:08)
[2023-04-02] MEDS ORDERED: HYDROmorphone 0.5 MG/0.5 ML Syringe IVPUSH PRN (12:08)
[2023-04-02] MEDS ORDERED: guaiFENesin/Dextromethorphan 100-10 MG/5 ML Soln 5 ML Cup PO PRN (12:11)
[2023-04-02] MEDS ORDERED: 50% Dextrose in Water 50 ML Syringe IVPUSH PRN (12:12)
[2023-04-02] MEDS ORDERED: Glucagon,Human Recombinant 1 MG Vial IM PRN (12:12)
[2023-04-02] MEDS ORDERED: Non-Formulary Medication 1 Each (Roflumilast [Roflumilast] 500 MCG Tablet) PO SCH (12:15)
[2023-04-02 12:49] LABS: CORONAVIRUS COVID-19 NAA NEGATIVE (NEGATIVE); INFLUENZA A NAA NEGATIVE (NEGATIVE); INFLUENZA B NAA NEGATIVE (NEGATIVE); RESPIRATORY SYNCYTIAL VIR NAA NEGATIVE (NEGATIVE)
[2023-04-02] MEDS: Albuterol/Ipratropium 3.0-0.5 MG/3 ML Neb Soln NEB PRN (13:31)
[2023-04-02] MEDS: methylPREDNISolone Sodium Succinate 40 MG/1 ML SDV IVPUSH SCH (13:38)
[2023-04-02] MEDS: Magnesium Sulfate/Water 2 GM in Premix Bag 1 BAG IV ONE (13:41)
[2023-04-02] MEDS: acetaZOLAMIDE 500 MG Vial IVPUSH ONE (13:44)
[2023-04-02] MEDS ORDERED: Albuterol 0.083% 2.5 MG/3 ML Neb Soln NEB PRN (14:56)
[2023-04-02] MEDS: Budesonide 0.5 MG/2 ML Neb Susp NEB SCH (17:01)
[2023-04-02] MEDS: Albuterol/Ipratropium 3.0-0.5 MG/3 ML Neb Soln NEB SCH (17:01)
[2023-04-02] MEDS: Arformoterol 15 MCG/2 ML Neb Soln INH SCH (17:01)
[2023-04-02] MEDS: Insulin Lispro 100 Units/ML 3 ML Vial SUBCUT SCH (17:53)
[2023-04-02] MEDS ORDERED: acetaZOLAMIDE 250 MG Tab PO SCH (21:00)
[2023-04-02] MEDS: Saccharomyces Boulardii (Probiotic) 250 MG Cap PO SCH (22:53)
[2023-04-02] MEDS: guaiFENesin 600 MG Tab.ER PO SCH (22:53)
[2023-04-02] MEDS: Tamsulosin 0.4 MG Cap.ER PO SCH (22:53)
[2023-04-02] MEDS: Mirtazapine 15 MG Tab PO SCH (22:53)
[2023-04-02] MEDS: Fluticasone NASAL Spray 16 GM Bottle NASBOTH SCH (22:53)
[2023-04-03 06:49] LABS: BASOPHILS PERCENT AUTO 0.1 % (0.0-1.0); HEMATOCRIT 36.7 % (40.0-54.0); HEMOGLOBIN 10.6 g/dL (14.0-18.0); LYMPHOCYTES PERCENT AUTO 2.3 % (20.5-50.1); MEAN CORPUSCULAR HEMOGLOBIN 30.5 pg (27.0-34.0); MEAN CORPUSCULAR HGB CONC 28.9 g/dL (33.0-35.0); MEAN CORPUSCULAR VOLUME 105.8 fL (80-100); MONOCYTES PERCENT AUTO 3.6 % (2-8); PLATELET COUNT,PLT 341 10^3/uL (150-450); RED BLOOD CELL COUNT 3.47 10^6/uL (4.6-6.2); WHITE BLOOD CELL COUNT,WBC 11.1 10^3/uL (5.0-10.0)
[2023-04-03 06:58] LABS: ALBUMIN 2.8 g/dL (3.4-5.0); BILIRUBIN TOTAL 0.3 mg/dL (0.2-1.0); BUN/CREATININE RATIO 29.5 (No establ ref range); C-REACTIVE PROTEIN 6.99 ng/dL (<=0.50); CREATININE 1.49 mg/dL (0.70-1.30); EST CRCL DRUG DOSING (CG) 32.2 mL/min; MAGNESIUM 2.7 mg/dL (1.8-2.4); PROTEIN TOTAL,TP 6.6 g/dL (6.4-8.2)
[2023-04-03 07:00] LABS: A/G RATIO 0.74
[2023-04-03] MEDS: cefTRIAXone 1 GM Vial IVPUSH SCH (08:43)
[2023-04-03] MEDS: Azithromycin 500 MG in Sodium Chloride 0.9% 250 ML IV SCH (08:45)
[2023-04-03] MEDS: Sertraline 50 MG Tab PO SCH (08:54)
[2023-04-03] MEDS: Metoprolol Succinate 25 MG Tab.ER PO SCH (08:54)
[2023-04-03] MEDS: Furosemide 40 MG Tab PO SCH (08:54)
[2023-04-03] MEDS ORDERED: Tamsulosin 0.4 MG Cap.ER PO SCH (09:00)
[2023-04-04 06:39] LABS: HEMOGLOBIN 10.4 g/dL (14.0-18.0); LYMPHOCYTES PERCENT AUTO 1.6 % (20.5-50.1); MEAN CORPUSCULAR HEMOGLOBIN 31.5 pg (27.0-34.0); MEAN CORPUSCULAR HGB CONC 29.7 g/dL (33.0-35.0); MEAN CORPUSCULAR VOLUME 106.1 fL (80-100); MONOCYTES PERCENT AUTO 3.3 % (2-8); NEUTROPHILS PERCENT AUTO 95.1 % (42.2-75.2); PLATELET COUNT,PLT 380 10^3/uL (150-450); WHITE BLOOD CELL COUNT,WBC 17.1 10^3/uL (5.0-10.0)
[2023-04-04 06:40] LABS: ALBUMIN 2.6 g/dL (3.4-5.0); ANION GAP 7.8 mEq/L (7-13); BILIRUBIN TOTAL 0.2 mg/dL (0.2-1.0); BUN/CREATININE RATIO 38.8 (No establ ref range); C-REACTIVE PROTEIN 3.41 ng/dL (<=0.50); CALCIUM 8.8 mg/dL (8.5-10.1); CREATININE 1.39 mg/dL (0.70-1.30); EST CRCL DRUG DOSING (CG) 34.52 mL/min; MAGNESIUM 2.3 mg/dL (1.8-2.4); POTASSIUM,K 4.8 mmol/L (3.5-5.1); PROTEIN TOTAL,TP 6.3 g/dL (6.4-8.2)
[2023-04-04] MEDS: YUPELRI INH SCH (06:47)
[2023-04-04 06:49] LABS: A/G RATIO 0.7
[2023-04-05 06:40] LABS: HEMATOCRIT 35.1 % (40.0-54.0); MEAN CORPUSCULAR HEMOGLOBIN 29.7 pg (27.0-34.0); MEAN CORPUSCULAR HGB CONC 28.5 g/dL (33.0-35.0); MEAN CORPUSCULAR VOLUME 104.2 fL (80-100); PLATELET COUNT,PLT 405 10^3/uL (150-450); RED BLOOD CELL COUNT 3.37 10^6/uL (4.6-6.2); WHITE BLOOD CELL COUNT,WBC 15.6 10^3/uL (5.0-10.0)
[2023-04-05 06:47] LABS: BASOPHILS PERCENT AUTO 0.1 % (0.0-1.0); LYMPHOCYTES PERCENT AUTO 1.5 % (20.5-50.1); MONOCYTES PERCENT AUTO 2.7 % (2-8); NEUTROPHILS PERCENT AUTO 95.7 % (42.2-75.2)
[2023-04-05 06:53] LABS: ALBUMIN 2.5 g/dL (3.4-5.0); ANION GAP 9.6 mEq/L (7-13); BILIRUBIN TOTAL 0.2 mg/dL (0.2-1.0); BUN/CREATININE RATIO 34.6 (No establ ref range); C-REACTIVE PROTEIN 1.86 ng/dL (<=0.50); CALCIUM 8.5 mg/dL (8.5-10.1); CREATININE 1.36 mg/dL (0.70-1.30); EST CRCL DRUG DOSING (CG) 35.28 mL/min; MAGNESIUM 2.2 mg/dL (1.8-2.4); POTASSIUM,K 4.6 mmol/L (3.5-5.1); PROTEIN TOTAL,TP 6.1 g/dL (6.4-8.2)
[2023-04-05 06:58] LABS: A/G RATIO 0.69
[2023-04-05 07:03] LABS: BAND PERCENT MAN 1 %; HYPOCHROMASIA 1+ SLIGHT; LYMPHOCYTES PERCENT MAN 1 % (20-50); MONOCYTES PERCENT MAN 3 % (2-8); SEG NEUTROPHILS PERCENT MAN 95 % (42-75)
[2023-04-05] MEDS: Sodium Chloride 0.9% 1,000 ML IV SCH (10:15)
[2023-04-06 06:44] LABS: BASOPHILS PERCENT AUTO 0.1 % (0.0-1.0); HEMATOCRIT 33.1 % (40.0-54.0); HEMOGLOBIN 9.6 g/dL (14.0-18.0); LYMPHOCYTES PERCENT AUTO 1.6 % (20.5-50.1); MEAN CORPUSCULAR HEMOGLOBIN 30.5 pg (27.0-34.0); MEAN CORPUSCULAR VOLUME 105.1 fL (80-100); NEUTROPHILS PERCENT AUTO 95.3 % (42.2-75.2); PLATELET COUNT,PLT 364 10^3/uL (150-450); RED BLOOD CELL COUNT 3.15 10^6/uL (4.6-6.2); WHITE BLOOD CELL COUNT,WBC 12.8 10^3/uL (5.0-10.0)
[2023-04-06 07:10] LABS: ALBUMIN 2.3 g/dL (3.4-5.0); ANION GAP 7.9 mEq/L (7-13); BILIRUBIN TOTAL 0.2 mg/dL (0.2-1.0); BUN/CREATININE RATIO 32.5 (No establ ref range); C-REACTIVE PROTEIN 1.02 ng/dL (<=0.50); CALCIUM 8.2 mg/dL (8.5-10.1); CREATININE 1.14 mg/dL (0.70-1.30); EST CRCL DRUG DOSING (CG) 42.09 mL/min; MAGNESIUM 2.1 mg/dL (1.8-2.4); POTASSIUM,K 4.9 mmol/L (3.5-5.1); PROTEIN TOTAL,TP 5.3 g/dL (6.4-8.2)
[2023-04-06 07:17] LABS: A/G RATIO 0.77
[2023-04-06 11:36] VITALS: BP 126/57; PULSE 88
== END 2023-04-06 11:30 | disposition home or self-care (01) | DRG 193 ==
LOC: DL.ED 05:40 → DL.MS 10:43 → DL.ED 10:57 → DL.MS 11:51
PROVIDERS: ADMIT Internal Medicine; ATTEND Internal Medicine
PROC: 5A09457 Assistance with Respiratory Ventilation, 24-96 Consecutive Hours, Continuous Positive Airway Pressure (ICD-10-PCS; principal; 2023-04-02)
DX: J96.01 Acute respiratory failure with hypoxia (principal); J96.02 Acute respiratory failure with hypercapnia; J18.9 Pneumonia, unspecified organism; G93.41 Metabolic encephalopathy; J96.22 Acute and chronic respiratory failure with hypercapnia; J96.21 Acute and chronic respiratory failure with hypoxia; I13.0 Hypertensive heart and chronic kidney disease with heart failure and stage 1 through stage 4 chronic kidney disease, or unspecified chronic kidney disease; I50.32 Chronic diastolic (congestive) heart failure; J44.0 Chronic obstructive pulmonary disease with (acute) lower respiratory infection; N17.9 Acute kidney failure, unspecified; I42.8 Other cardiomyopathies; J44.1 Chronic obstructive pulmonary disease with (acute) exacerbation; N18.30 Chronic kidney disease, stage 3 unspecified; N40.0 Benign prostatic hyperplasia without lower urinary tract symptoms; D63.1 Anemia in chronic kidney disease; F32.A Depression, unspecified; J43.9 Emphysema, unspecified; E78.00 Pure hypercholesterolemia, unspecified; I27.20 Pulmonary hypertension, unspecified; Z98.49 Cataract extraction status, unspecified eye; Z99.89 Dependence on other enabling machines and devices; Z86.16 Personal history of COVID-19; Z87.891 Personal history of nicotine dependence; Z98.890 Other specified postprocedural states; Z79.899 Other long term (current) drug therapy; Z99.81 Dependence on supplemental oxygen
CPT/HCPCS: 0241U; 36415; 36600; 70450; 71045; 80053; 80307; 82803; 82947; 83735; 84484; 85025; 86140; 93005; 93010; 94010; 94060; 94640; 94667; 94668; 94760; 96365; 96375; 97161-GP; 97165-GO; 99285; 99285-25; A9270-GY; J0456; J0696; J1120; J1815-GY; J2920; J2930; J3475; J3490; J7030; J7050; J7620-GY

== ENCOUNTER 2023-04-19 06:55 | Inpatient (IN) | payer MEDICARE, BC ==
[2023-04-19] MEDS: Sodium Chloride 0.9% 10 ML Syringe FLUSH PRN (07:05)
[2023-04-19] MEDS: methylPREDNISolone Sodium Succinate 125 MG/2 ML SDV IVPUSH ONE (07:06)
[2023-04-19] MEDS: Albuterol/Ipratropium 3.0-0.5 MG/3 ML Neb Soln NEB ONE (07:06)
[2023-04-19] MEDS: Magnesium Sulfate/Water 2 GM in Premix Bag 1 BAG IV ONE (07:24)
[2023-04-19 07:26] LABS: HEMATOCRIT 38.5 % (40.0-54.0); HEMOGLOBIN 11.7 g/dL (14.0-18.0); MEAN CORPUSCULAR HEMOGLOBIN 31.9 pg (27.0-34.0); MEAN CORPUSCULAR HGB CONC 30.4 g/dL (33.0-35.0); MEAN CORPUSCULAR VOLUME 104.9 fL (80-100); PLATELET COUNT,PLT 200 10^3/uL (150-450); RED BLOOD CELL COUNT 3.67 10^6/uL (4.6-6.2)
[2023-04-19 07:28] LABS: BASOPHILS PERCENT AUTO 0.3 % (0.0-1.0); EOSINOPHILS PERCENT AUTO 0.9 % (1.0-3.0); LYMPHOCYTES PERCENT AUTO 5.9 % (20.5-50.1); NEUTROPHILS PERCENT AUTO 84.9 % (42.2-75.2)
[2023-04-19 07:38] LABS: ALANINE AMINOTRANSFERASE,ALT 18 U/L (16-63); ALKALINE PHOSPHATASE 90 U/L (46-116); ANION GAP 4.2 mEq/L (7-13); ASPARTATE AMNIOTRANSFERASE,AST 16 U/L (15-37); BILIRUBIN TOTAL 0.2 mg/dL (0.2-1.0); BLOOD UREA NITROGEN,BUN 39 mg/dL (7-18); BUN/CREATININE RATIO 27.1 (No establ ref range); C-REACTIVE PROTEIN 2.54 ng/dL (<=0.50); CALCIUM 8.4 mg/dL (8.5-10.1); CARBON DIOXIDE,CO2 39 mmol/L (21-32); CHLORIDE,CL 102 mmol/L (98-107); CREATININE 1.44 mg/dL (0.70-1.30); EST CRCL DRUG DOSING (CG) 35.56 mL/min; GLUCOSE RANDOM 145 mg/dL (70-99); POTASSIUM,K 4.2 mmol/L (3.5-5.1); PROTEIN TOTAL,TP 6.5 g/dL (6.4-8.2); SODIUM,NA 141 mmol/L (136-145)
[2023-04-19 07:39] LABS: LACTIC ACID 0.9 mmol/L (0.4-2.0)
[2023-04-19 07:49] LABS: A/G RATIO 0.86; ESTIMATED GFR 50 mL/min (>=60)
[2023-04-19] MEDS: Azithromycin 500 MG in Sodium Chloride 0.9% 250 ML IV ONE (07:51)
[2023-04-19 07:52] LABS: B-TYPE NATRIURETIC PEPTIDE,BNP 62 pg/ml (0-100)
[2023-04-19 08:04] LABS: PROTHROMBIN TIME 10.1 SEC (9.0-12.0); PTT,PARTIAL THROMBOPLSTIN TIME 23.9 SEC (22.0-34.0)
[2023-04-19 08:21] LABS: BAND PERCENT MAN 2 %; LYMPHOCYTES PERCENT MAN 4 % (20-50); MONOCYTES PERCENT MAN 8 % (2-8); SEG NEUTROPHILS PERCENT MAN 86 % (42-75)
[2023-04-19 09:43] LABS: CORONAVIRUS COVID-19 NAA NEGATIVE (NEGATIVE); INFLUENZA A NAA NEGATIVE (NEGATIVE); INFLUENZA B NAA NEGATIVE (NEGATIVE); RESPIRATORY SYNCYTIAL VIR NAA NEGATIVE (NEGATIVE)
[2023-04-19] MEDS ORDERED: Bisacodyl 5 MG Tab PO PRN (12:31)
[2023-04-19] MEDS ORDERED: Docusate Sodium 100 MG Cap PO PRN (12:31)
[2023-04-19] MEDS ORDERED: Acetaminophen/HYDROcodone 325-5 MG Tab PO PRN (12:31)
[2023-04-19] MEDS ORDERED: Albuterol/Ipratropium 3.0-0.5 MG/3 ML Neb Soln NEB PRN (12:31)
[2023-04-19] MEDS ORDERED: Ondansetron 4 MG/2 ML SDV IVPUSH PRN (12:31)
[2023-04-19] MEDS ORDERED: Albuterol 0.083% 2.5 MG/3 ML Neb Soln NEB PRN (12:31)
[2023-04-19] MEDS ORDERED: Acetaminophen 325 MG Tab PO PRN (12:31)
[2023-04-19] MEDS ORDERED: guaiFENesin 600 MG Tab.ER PO PRN (12:36)
[2023-04-19] MEDS ORDERED: Melatonin 3 MG Tab PO PRN (12:40)
[2023-04-19] MEDS ORDERED: 50% Dextrose in Water 50 ML Syringe IVPUSH PRN (13:12)
[2023-04-19] MEDS ORDERED: Glucagon,Human Recombinant 1 MG Vial IM PRN (13:12)
[2023-04-19] MEDS: cefTRIAXone 1 GM Vial IVPUSH SCH (14:30)
[2023-04-19] MEDS: REVEFENACIN 175 MCG/3 ML INH SCH ×2 (15:30→15:32)
[2023-04-19] MEDS: methylPREDNISolone Sodium Succinate 40 MG/1 ML SDV IVPUSH SCH (16:39)
[2023-04-19] MEDS: Insulin Lispro 100 Units/ML 3 ML Vial SUBCUT SCH (17:24)
[2023-04-19] MEDS: Arformoterol 15 MCG/2 ML Neb Soln INH SCH (17:29)
[2023-04-19] MEDS: Budesonide 0.5 MG/2 ML Neb Susp INH SCH (17:29)
[2023-04-19] MEDS: Fluticasone NASAL Spray 16 GM Bottle NAS SCH (21:20)
[2023-04-19] MEDS: Mirtazapine 15 MG Tab PO SCH (21:22)
[2023-04-19] MEDS: atorvaSTATin 10 MG Tab PO SCH (21:22)
[2023-04-19] MEDS: Tamsulosin 0.4 MG Cap.ER PO SCH (21:23)
[2023-04-20 05:52] LABS: BASOPHILS PERCENT AUTO 0.3 % (0.0-1.0); HEMATOCRIT 34.4 % (40.0-54.0); HEMOGLOBIN 10.2 g/dL (14.0-18.0); LYMPHOCYTES PERCENT AUTO 1.9 % (20.5-50.1); MEAN CORPUSCULAR HEMOGLOBIN 31.2 pg (27.0-34.0); MEAN CORPUSCULAR HGB CONC 29.7 g/dL (33.0-35.0); MEAN CORPUSCULAR VOLUME 105.2 fL (80-100); MONOCYTES PERCENT AUTO 1.8 % (2-8); PLATELET COUNT,PLT 200 10^3/uL (150-450); RED BLOOD CELL COUNT 3.27 10^6/uL (4.6-6.2); WHITE BLOOD CELL COUNT,WBC 15.2 10^3/uL (5.0-10.0)
[2023-04-20 06:24] LABS: ANION GAP 4.8 mEq/L (7-13); CALCIUM 8.4 mg/dL (8.5-10.1); CREATININE 1.16 mg/dL (0.70-1.30); EST CRCL DRUG DOSING (CG) 45.19 mL/min; POTASSIUM,K 4.8 mmol/L (3.5-5.1)
[2023-04-20 07:38] VITALS: BP 129/69; PULSE 66
[2023-04-20] MEDS: Azithromycin 250 MG Tab PO SCH (08:54)
[2023-04-20] MEDS: Metoprolol Succinate 25 MG Tab.ER PO SCH (08:54)
[2023-04-20] MEDS: Enoxaparin 40 MG/0.4 ML Syringe SUBCUT SCH (08:56)
[2023-04-20] MEDS: Furosemide 40 MG Tab PO SCH (09:00)
[2023-04-20] MEDS: Non-Formulary Medication 1 Each (Roflumilast [Roflumilast] 500 MCG Tablet) PO SCH (13:56)
== END 2023-04-20 11:40 | disposition home or self-care (01) | DRG 189 ==
LOC: DL.ED 06:55 → DL.MS 09:57
PROVIDERS: ADMIT Internal Medicine; ATTEND Internal Medicine
PROC: 5A09357 Assistance with Respiratory Ventilation, Less than 24 Consecutive Hours, Continuous Positive Airway Pressure (ICD-10-PCS; principal; 2023-04-19)
DX: J96.21 Acute and chronic respiratory failure with hypoxia (principal); J44.9 Chronic obstructive pulmonary disease, unspecified; J44.1 Chronic obstructive pulmonary disease with (acute) exacerbation; I50.9 Heart failure, unspecified; I50.30 Unspecified diastolic (congestive) heart failure; I13.0 Hypertensive heart and chronic kidney disease with heart failure and stage 1 through stage 4 chronic kidney disease, or unspecified chronic kidney disease; H91.90 Unspecified hearing loss, unspecified ear; E78.00 Pure hypercholesterolemia, unspecified; G47.30 Sleep apnea, unspecified; N40.0 Benign prostatic hyperplasia without lower urinary tract symptoms; N18.30 Chronic kidney disease, stage 3 unspecified; F32.A Depression, unspecified; Z79.899 Other long term (current) drug therapy; Z79.51 Long term (current) use of inhaled steroids; Z86.16 Personal history of COVID-19; Z98.49 Cataract extraction status, unspecified eye; Z98.890 Other specified postprocedural states
CPT/HCPCS: 0241U; 36415; 71045; 80048; 80053; 82947; 83605; 83880; 84145; 84484; 85025; 85610; 85730; 86140; 87040; 93005; 94640; 94660; 94760; 99223; 99238; A9270-GY; J0456; J0696; J1650; J1815-GY; J2920; J2930; J3475; J3490; J7050; J7620-GY; J7677

== ENCOUNTER 2023-05-01 11:30 | Inpatient (IN) | payer MEDICARE, BC ==
[2023-05-01 12:08] LABS: BASE EXCESS ARTERIAL 16 mmol/L ((-2)-(+3)); BICARBONATE,ARTERIAL 43.8 mmol/L (22-26); O2 DELIVERY DEVICE NON REBR MASK; O2 SATURATION ARTERIAL 96 % (95-100); PO2 ARTERIAL 77 mmHg (70-100)
[2023-05-01 12:09] LABS: PCO2 ARTERIAL 78 mmHg (35-45)
[2023-05-01 12:11] LABS: ALLEN TEST PERFORMED; PH,ARTERIAL 7.37 (7.35-7.45)
[2023-05-01] MEDS: Albuterol/Ipratropium 3.0-0.5 MG/3 ML Neb Soln NEB ONE (12:21)
[2023-05-01] MEDS: methylPREDNISolone Sodium Succinate 125 MG/2 ML SDV IVPUSH ONE (12:21)
[2023-05-01] MEDS: Sodium Chloride 0.9% 10 ML Syringe FLUSH PRN (12:21)
[2023-05-01] MEDS: Levofloxacin/Dextrose 5%-Water 750 MG in Premix Bag 1 BAG IV ONE (12:24)
[2023-05-01 12:44] LABS: HEMATOCRIT 36.3 % (40.0-54.0); HEMOGLOBIN 10.9 g/dL (14.0-18.0); MEAN CORPUSCULAR HEMOGLOBIN 31.4 pg (27.0-34.0); MEAN CORPUSCULAR VOLUME 104.6 fL (80-100); PLATELET COUNT,PLT 226 10^3/uL (150-450); RED BLOOD CELL COUNT 3.47 10^6/uL (4.6-6.2); WHITE BLOOD CELL COUNT,WBC 11.1 10^3/uL (5.0-10.0)
[2023-05-01 12:45] LABS: BASOPHILS PERCENT AUTO 0.1 % (0.0-1.0); EOSINOPHILS PERCENT AUTO 1.6 % (1.0-3.0); LYMPHOCYTES PERCENT AUTO 6.5 % (20.5-50.1); MONOCYTES PERCENT AUTO 10.7 % (2-8); NEUTROPHILS PERCENT AUTO 81.1 % (42.2-75.2)
[2023-05-01 12:55] LABS: ALBUMIN 2.9 g/dL (3.4-5.0); ANION GAP 7.3 mEq/L (7-13); BILIRUBIN TOTAL 0.3 mg/dL (0.2-1.0); BUN/CREATININE RATIO 23.3 (No establ ref range); CALCIUM 8.4 mg/dL (8.5-10.1); CREATININE 1.5 mg/dL (0.70-1.30); EST CRCL DRUG DOSING (CG) 37.36 mL/min; LACTIC ACID 0.9 mmol/L (0.4-2.0); POTASSIUM,K 4.3 mmol/L (3.5-5.1); PROTEIN TOTAL,TP 5.6 g/dL (6.4-8.2)
[2023-05-01 12:58] LABS: A/G RATIO 1.07
[2023-05-01] MEDS: Diltiazem 25 MG/5 ML SDV IVPUSH ONE (12:59)
[2023-05-01] MEDS: Digoxin 500 MCG/2 ML Amp IVPUSH ONE (13:04)
[2023-05-01 13:32] LABS: BAND PERCENT MAN 2 %; LYMPHOCYTES PERCENT MAN 8 % (20-50); MONOCYTES PERCENT MAN 9 % (2-8); SEG NEUTROPHILS PERCENT MAN 79 % (42-75)
[2023-05-01 13:33] LABS: EOSINOPHILS PERCENT MAN 2 % (1-3)
[2023-05-01 14:05] LABS: CORONAVIRUS COVID-19 NAA NEGATIVE (NEGATIVE); INFLUENZA A NAA NEGATIVE (NEGATIVE); INFLUENZA B NAA NEGATIVE (NEGATIVE); RESPIRATORY SYNCYTIAL VIR NAA NEGATIVE (NEGATIVE)
[2023-05-01] MEDS ORDERED: Midodrine 5 MG Tab PO PRN (15:24)
[2023-05-01] MEDS ORDERED: Bisacodyl 5 MG Tab PO PRN (15:51)
[2023-05-01] MEDS ORDERED: Magnesium Hydroxide 400 MG/5 ML Susp 30 ML Cup PO PRN (15:51)
[2023-05-01] MEDS ORDERED: Naloxone 2 MG/2 ML Syringe IVPUSH PRN (15:51)
[2023-05-01] MEDS ORDERED: Polyethylene Glycol 3350 Powder 17 GM Packet PO PRN (15:51)
[2023-05-01] MEDS ORDERED: Ondansetron 4 MG/2 ML SDV IVPUSH PRN (15:51)
[2023-05-01] MEDS ORDERED: guaiFENesin 600 MG Tab.ER PO PRN (16:02)
[2023-05-01 16:41] LABS: TSH ULTRASENSITIVE 0.95 uIU/mL (0.36-3.74)
[2023-05-01] MEDS: HYDROmorphone 0.5 MG/0.5 ML Syringe IVPUSH PRN (17:30)
[2023-05-01] MEDS ORDERED: Sodium Chloride 0.9% 1,000 ML IV SCH (20:00)
[2023-05-01] MEDS: Fluticasone NASAL Spray 16 GM Bottle NAS SCH (20:07)
[2023-05-01] MEDS: Mirtazapine 15 MG Tab PO SCH (20:09)
[2023-05-01] MEDS: Tamsulosin 0.4 MG Cap.ER PO SCH (20:09)
[2023-05-01] MEDS: atorvaSTATin 10 MG Tab PO SCH (20:09)
[2023-05-01] MEDS: Apixaban 5 MG Tab PO SCH (20:09)
[2023-05-01] MEDS: Arformoterol 15 MCG/2 ML Neb Soln INH SCH (20:26)
[2023-05-01] MEDS: Budesonide 0.5 MG/2 ML Neb Susp INH SCH (20:26)
[2023-05-02] MEDS: Omeprazole 20 MG Cap.CR PO SCH (05:15)
[2023-05-02 06:29] LABS: BASOPHILS PERCENT AUTO 0.1 % (0.0-1.0); HEMATOCRIT 35.5 % (40.0-54.0); HEMOGLOBIN 10.5 g/dL (14.0-18.0); LYMPHOCYTES PERCENT AUTO 3.3 % (20.5-50.1); MEAN CORPUSCULAR HEMOGLOBIN 31.1 pg (27.0-34.0); MEAN CORPUSCULAR HGB CONC 29.6 g/dL (33.0-35.0); MONOCYTES PERCENT AUTO 4.1 % (2-8); NEUTROPHILS PERCENT AUTO 92.5 % (42.2-75.2); PLATELET COUNT,PLT 251 10^3/uL (150-450); RED BLOOD CELL COUNT 3.38 10^6/uL (4.6-6.2); WHITE BLOOD CELL COUNT,WBC 9.5 10^3/uL (5.0-10.0)
[2023-05-02 06:52] LABS: ALBUMIN 2.8 g/dL (3.4-5.0); ANION GAP 6.6 mEq/L (7-13); BILIRUBIN TOTAL 0.2 mg/dL (0.2-1.0); BUN/CREATININE RATIO 20.3 (No establ ref range); C-REACTIVE PROTEIN 2.14 ng/dL (<=0.50); CALCIUM 8.6 mg/dL (8.5-10.1); CREATININE 1.58 mg/dL (0.70-1.30); EST CRCL DRUG DOSING (CG) 33.68 mL/min; MAGNESIUM 2.2 mg/dL (1.8-2.4); POTASSIUM,K 4.6 mmol/L (3.5-5.1); PROTEIN TOTAL,TP 5.6 g/dL (6.4-8.2)
[2023-05-02] MEDS: Metoprolol Succinate 25 MG Tab.ER PO SCH (08:26)
[2023-05-02] MEDS: Digoxin 125 MCG Tab PO SCH (08:26)
[2023-05-02] MEDS: predniSONE 20 MG Tab PO SCH (08:26)
[2023-05-02] MEDS: Revefenacin 175 MCG/3 ML Neb Soln INH SCH (08:27)
[2023-05-02] MEDS: Azithromycin 500 MG in Sodium Chloride 0.9% 250 ML IV SCH (08:27)
[2023-05-02] MEDS: AMINOPHYLLINE IV ONE (10:10)
[2023-05-02] MEDS: SODIUM CHLORIDE 0.9% IV ONE (10:10)
[2023-05-02] MEDS ORDERED: Aminophylline 500 MG in Sodium Chloride 0.9% 500 ML IV SCH ×2 (10:30→17:30)
[2023-05-02] MEDS: Acetaminophen 325 MG Tab PO PRN (13:45)
[2023-05-02] MEDS: Aminophylline 500 MG in Sodium Chloride 0.9% 500 ML IV SCH (18:22)
[2023-05-02] MEDS ORDERED: Glucagon,Human Recombinant 1 MG Vial IM PRN (19:38)
[2023-05-02] MEDS ORDERED: 50% Dextrose in Water 50 ML Syringe IVPUSH PRN (19:38)
[2023-05-03 06:05] LABS: BASOPHILS PERCENT AUTO 0.1 % (0.0-1.0); EOSINOPHILS PERCENT AUTO 0.1 % (1.0-3.0); LYMPHOCYTES PERCENT AUTO 4.5 % (20.5-50.1); MEAN CORPUSCULAR HEMOGLOBIN 31.2 pg (27.0-34.0); MEAN CORPUSCULAR HGB CONC 29.7 g/dL (33.0-35.0); MEAN CORPUSCULAR VOLUME 104.8 fL (80-100); MONOCYTES PERCENT AUTO 7.8 % (2-8); NEUTROPHILS PERCENT AUTO 87.5 % (42.2-75.2); PLATELET COUNT,PLT 283 10^3/uL (150-450); RED BLOOD CELL COUNT 3.53 10^6/uL (4.6-6.2); WHITE BLOOD CELL COUNT,WBC 14.5 10^3/uL (5.0-10.0)
[2023-05-03 06:41] LABS: A/G RATIO 1.07; ANION GAP 3.6 mEq/L (7-13); BILIRUBIN TOTAL 0.2 mg/dL (0.2-1.0); BUN/CREATININE RATIO 19.7 (No establ ref range); C-REACTIVE PROTEIN 1.1 ng/dL (<=0.50); CALCIUM 8.1 mg/dL (8.5-10.1); CREATININE 1.17 mg/dL (0.70-1.30); EST CRCL DRUG DOSING (CG) 48.07 mL/min; MAGNESIUM 2.1 mg/dL (1.8-2.4); POTASSIUM,K 3.6 mmol/L (3.5-5.1); PROTEIN TOTAL,TP 5.8 g/dL (6.4-8.2)
[2023-05-03] MEDS: Insulin Lispro 100 Units/ML 3 ML Vial SUBCUT SCH (09:07)
[2023-05-03] MEDS: acetaZOLAMIDE 250 MG Tab PO ONE (09:46)
[2023-05-03] MEDS: acetaZOLAMIDE 250 MG Tab PO SCH (20:08)
[2023-05-04 06:41] LABS: BASOPHILS PERCENT AUTO 0.1 % (0.0-1.0); EOSINOPHILS PERCENT AUTO 0.1 % (1.0-3.0); HEMATOCRIT 34.9 % (40.0-54.0); HEMOGLOBIN 10.2 g/dL (14.0-18.0); LYMPHOCYTES PERCENT AUTO 4.9 % (20.5-50.1); MEAN CORPUSCULAR HEMOGLOBIN 31.2 pg (27.0-34.0); MEAN CORPUSCULAR HGB CONC 29.2 g/dL (33.0-35.0); MEAN CORPUSCULAR VOLUME 106.7 fL (80-100); MONOCYTES PERCENT AUTO 8.4 % (2-8); NEUTROPHILS PERCENT AUTO 86.5 % (42.2-75.2); PLATELET COUNT,PLT 266 10^3/uL (150-450); RED BLOOD CELL COUNT 3.27 10^6/uL (4.6-6.2); WHITE BLOOD CELL COUNT,WBC 13.5 10^3/uL (5.0-10.0)
[2023-05-04 07:11] LABS: ALBUMIN 2.6 g/dL (3.4-5.0); ANION GAP 7.6 mEq/L (7-13); BILIRUBIN TOTAL 0.3 mg/dL (0.2-1.0); BUN/CREATININE RATIO 16.3 (No establ ref range); C-REACTIVE PROTEIN 0.55 ng/dL (<=0.50); CALCIUM 7.9 mg/dL (8.5-10.1); CREATININE 1.29 mg/dL (0.70-1.30); EST CRCL DRUG DOSING (CG) 43.38 mL/min; MAGNESIUM 2.1 mg/dL (1.8-2.4); POTASSIUM,K 3.6 mmol/L (3.5-5.1); PROTEIN TOTAL,TP 5.1 g/dL (6.4-8.2)
[2023-05-04 07:14] LABS: A/G RATIO 1.04
[2023-05-04] MEDS: traMADol 50 MG Tab PO PRN (15:10)
[2023-05-05 07:08] LABS: BASOPHILS PERCENT AUTO 0.1 % (0.0-1.0); HEMATOCRIT 34.7 % (40.0-54.0); HEMOGLOBIN 10.2 g/dL (14.0-18.0); LYMPHOCYTES PERCENT AUTO 4.9 % (20.5-50.1); MEAN CORPUSCULAR HEMOGLOBIN 31.6 pg (27.0-34.0); MEAN CORPUSCULAR HGB CONC 29.4 g/dL (33.0-35.0); MEAN CORPUSCULAR VOLUME 107.4 fL (80-100); PLATELET COUNT,PLT 280 10^3/uL (150-450); RED BLOOD CELL COUNT 3.23 10^6/uL (4.6-6.2); WHITE BLOOD CELL COUNT,WBC 11.7 10^3/uL (5.0-10.0)
[2023-05-05 07:16] LABS: ALANINE AMINOTRANSFERASE,ALT 37 U/L (16-63); ALBUMIN 2.6 g/dL (3.4-5.0); ALKALINE PHOSPHATASE 84 U/L (46-116); ANION GAP 7.4 mEq/L (7-13); ASPARTATE AMNIOTRANSFERASE,AST 13 U/L (15-37); BILIRUBIN TOTAL 0.2 mg/dL (0.2-1.0); BLOOD UREA NITROGEN,BUN 21 mg/dL (7-18); BUN/CREATININE RATIO 16.9 (No establ ref range); C-REACTIVE PROTEIN < 0.50 ng/dL (<=0.50); CALCIUM 7.8 mg/dL (8.5-10.1); CARBON DIOXIDE,CO2 32 mmol/L (21-32); CHLORIDE,CL 109 mmol/L (98-107); CREATININE 1.24 mg/dL (0.70-1.30); EST CRCL DRUG DOSING (CG) 45.13 mL/min; ESTIMATED GFR 60 mL/min (>=60); GLUCOSE RANDOM 87 mg/dL (70-99); MAGNESIUM 1.9 mg/dL (1.8-2.4); POTASSIUM,K 3.4 mmol/L (3.5-5.1); PROTEIN TOTAL,TP 5.2 g/dL (6.4-8.2); SODIUM,NA 145 mmol/L (136-145)
[2023-05-05] MEDS: Arformoterol 15 MCG/2 ML Neb Soln INH SCH (08:25)
[2023-05-05] MEDS: Budesonide 0.5 MG/2 ML Neb Susp INH SCH (08:35)
[2023-05-05] MEDS: Potassium Chloride 10 MEQ Tab.ER PO ONE (11:56)
[2023-05-05] MEDS: Theophylline 300 MG Tab.ER PO SCH (13:18)
[2023-05-05] MEDS: REVEFENACIN 175 MCG/3 ML INH SCH (14:44)
[2023-05-06 08:00] VITALS: BP 103/52; PULSE 71
[2023-05-06] MEDS: LORazepam 2 MG/ML SDV IVPUSH PRN (11:44)
[2023-05-06] MEDS: Morphine 2 MG/ML SYRINGE ONE (17:00)
[2023-05-06] MEDS: Scopalamine 1mg/3day Transdermal Patch TOP ONE (17:00)
[2023-05-06] MEDS ORDERED: Morphine 10 MG/ML Syringe IVPUSH PRN (17:31)
[2023-05-06] MEDS ORDERED: LORazepam 2 MG/ML SDV IVPUSH PRN (17:31)
[2023-05-06] MEDS ORDERED: Atropine 1% Ophth Soln 5 ML Bottle SL PRN (17:33)
[2023-05-06] MEDS: Morphine 10 MG/ML Syringe IVPUSH PRN (21:21)
[2023-05-07] MEDS: LORazepam 2 MG/ML SDV IVPUSH PRN (15:10)
== END 2023-05-08 00:40 | disposition expired | DRG 308 ==
LOC: DL.ED 11:30 → DL.MS 14:50 → DL.ED 15:50 → UNDOADMIN 15:57 → DL.MS 15:57 → UNDODISIN 05-08 00:40
PROVIDERS: ADMIT Internal Medicine; ATTEND Internal Medicine
PROC: 5A09457 Assistance with Respiratory Ventilation, 24-96 Consecutive Hours, Continuous Positive Airway Pressure (ICD-10-PCS; principal; 2023-05-01)
PROC: 4A033R1 Measurement of Arterial Saturation, Peripheral, Percutaneous Approach (ICD-10-PCS; 2023-05-01)
DX: I48.0 Paroxysmal atrial fibrillation (principal); I50.33 Acute on chronic diastolic (congestive) heart failure; J96.21 Acute and chronic respiratory failure with hypoxia; J96.22 Acute and chronic respiratory failure with hypercapnia; I13.0 Hypertensive heart and chronic kidney disease with heart failure and stage 1 through stage 4 chronic kidney disease, or unspecified chronic kidney disease; I42.8 Other cardiomyopathies; Z66 Do not resuscitate; Z51.5 Encounter for palliative care; T38.0X5A Adverse effect of glucocorticoids and synthetic analogues, initial encounter; N40.0 Benign prostatic hyperplasia without lower urinary tract symptoms; E88.A Wasting disease (syndrome) due to underlying condition; I48.91 Unspecified atrial fibrillation; F32.9 Major depressive disorder, single episode, unspecified; J44.9 Chronic obstructive pulmonary disease, unspecified; D63.1 Anemia in chronic kidney disease; N18.30 Chronic kidney disease, stage 3 unspecified; H91.90 Unspecified hearing loss, unspecified ear; E78.00 Pure hypercholesterolemia, unspecified; I27.20 Pulmonary hypertension, unspecified; D50.9 Iron deficiency anemia, unspecified; R73.9 Hyperglycemia, unspecified; I50.812 Chronic right heart failure; G47.30 Sleep apnea, unspecified; R15.9 Full incontinence of feces; J98.2 Interstitial emphysema; H54.7 Unspecified visual loss; R41.3 Other amnesia; Z79.51 Long term (current) use of inhaled steroids; Z98.49 Cataract extraction status, unspecified eye; Z87.01 Personal history of pneumonia (recurrent); Z87.891 Personal history of nicotine dependence; Z79.899 Other long term (current) drug therapy; Z98.890 Other specified postprocedural states; Z99.81 Dependence on supplemental oxygen; Z79.2 Long term (current) use of antibiotics; Z86.16 Personal history of COVID-19
CPT/HCPCS: 0241U; 36415; 36600; 71045; 80053; 80198; 82803; 82947; 83605; 83735; 83880; 84145; 84439; 84443; 84484; 85025; 86140; 87040; 93005; 93010; 94640; 96365; 96366; 96375; 99223; 99233; 99238; 99285; 99291; A9270-GY; J0280; J0456; J1160; J1170; J1956; J2060; J2270; J2930; J3490; J7040; J7050; J7512; J7620-GY